=== PATIENT | female | born 1960 | race Caucasian/White ===

== ENCOUNTER 2023-04-25 16:37 | Outpatient (OUT) | payer OTHER, SELFPAY ==
--- NOTE | 2023-04-25 17:10 | XR_ITS ---
[facility] [place] [id number] Patient Name: ALF CANALES MRN: [id number] date: 1960 Sex: F Assigned Patient Location: [facility] Current Patient Location: [facility] Accession/Order Number: [id number] Exam Date: 04/25/2023 17:00 Report Date: 04/25/2023 17:58 At the request of: ANTONIO NUNN Procedure: XR hand LT min 3V EXAM: XR hand LT min 3V HISTORY: Pain and swelling in 2nd digit, M79.645 COMPARISON: None. TECHNIQUE: 3 views of the left hand were obtained. FINDINGS: There is no evidence of an acute fracture or dislocation. There is mild narrowing at the first carpometacarpal joint. The joint spaces otherwise appear intact. No abnormal soft tissue calcifications are identified in the index finger. XR/XR hand LT min 3V IMPRESSION: No acute fracture or dislocation. No significant degenerative changes are present in the index finger. Electronically authenticated by: ROSA BRONSON Date: 04/25/2023 17:58
== END 2023-04-25 16:38 | disposition home or self-care (01) ==
LOC: RAD 16:43
PROVIDERS: PCP Family Medicine; Visit Provider Nurse Practitioner Family
DX: M79.645 Pain in left finger(s) (principal)
CPT/HCPCS: 73130

== ENCOUNTER 2023-05-20 07:33 | Outpatient (OUT) | payer OTHER, SELFPAY ==
--- NOTE | 2023-05-20 07:34 | VEIN_ITS ---
Patient: ALF CANALES Exam Date: 05/20/2023 : 1960 Gender:F Ordering : DR JOJO SCHMITZ M.D. Admission #: [id number] Family : Order #: [id number] CLICK HERE TO VIEW EXAM RADIOLOGY REPORT PROCEDURE: [facility] COMPREHENSIVE VEIN CENTER - OFFICE VISIT INITIAL COMPARISON: None. PROGRESS NOTES: [age] year old female who presents with a 8 year history of bulging dilated veins, aching, burning sensation, heaviness, itching, and dull pain of legs (7/10 on pain scale). The patient's soft leg symptoms are worse than the right. There has been a progression of symptoms. 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 The patient describes an improvement with rest, elevation, exercise, support stockings, and [id number] medication. The patient denies any signs and symptoms to suggest arterial ischemia. The patient describes a family history of varicose veins on paternal side. The patient has drinking and smoking history of : no alcohol or tobacco use. Patient has a past medical history significant for hypothyroidism. The patient denies a history of deep venous thrombus or pulmonary embolus. See separate history and physical for medication list. No prior treatment for varicose or spider veins. Current , long-term use of compression stockings. After review of nurse notes, history and physical exam I discussed at length the pathophysiology of venous hypertension and possible treatments, therapies and strategies available. We discussed at length the importance of elevating the lower extremities above the level of the heart, increased physical activity and compression stocking use. Ultrasound venous reflux study performed today was discussed at length with the patient. The report demonstrates mildly dilated left great saphenous vein with multiple areas of abnormal reflux. Multiple vessels bilaterally border on, fall just below criteria for treatment. Prominent, abnormally dilated and incompetent branch saphenous varicosity within distal left thigh. Incompetent financial writer veins within right calf.. PHYSICAL EXAM: The right leg demonstrates a few varicosities, several prominent reticular veins and spider veins, no ulceration, mild edema at time of being seen in the servicer travel trailers, no skin discoloration. The left leg demonstrates a few varicosities, several prominent reticular veins and spider veins, no ulceration, mild edema at time of vein seen in the servicer travel trailers, no skin discoloration. Both thighs, legs and feet were symmetrically warm to the touch. Good posterior tibial and dorsalis pedis pulses were present bilaterally. VEIN/[facility] Facility EST Comprehensive IMPRESSION: 1. Mild venous insufficiency, left greater than right, but patient is very symptomatic with significant exacerbation by end of day when patient is working, for which she is seeking relief. 2. A few lower extremity varicose veins 3. Mild bilateral lower extremity subcutaneous edema at time of valuation; patient describes this significantly increasing by end of day. 4. No flow significant arterial disease 5. CEAP: C3, EC, , IA PLAN: 1. Continued use of compression stockings 2. Elevated legs and increased physical activity symptomatic relief 3. Endovenous laser ablation of proximal left great saphenous vein. 4. Microfoam chemical ablation of incompetent branch saphenous varicosities. 5. Sclerotherapy of prominent reticular veins and spider veins. Nurse notes, history and physical were reviewed and confirmed, see attached forms. The nurse was present throughout the physical exam and consultation Dictated by: Bruce Saul M.D. on 05/20/2023 at 09:05 Approved by: Bruce Saul M.D. on 05/20/2023 at 09:16
--- NOTE | 2023-05-20 07:34 | VEIN_ITS ---
Patient: ALF CANALES Exam Date: 05/20/2023 : 1960 Gender:F Ordering : ANTONIO SIMPSONUCH Admission #: [id number] Family : DR JOJO SCHMITZ M.D. Order #: [id number] CLICK HERE TO VIEW EXAM RADIOLOGY REPORT PROCEDURE: VC EXT VENOUS REFLUX BRIEN LMTD COMPARISON: None. INDICATIONS: I83.90 Recurrent varicose veins of bilateral leg veins TECHNIQUE: Duplex imaging of the lower extremity to assess the deep and superficial venous system for the presence of deep or superficial venous incompetence and to document the location and severity of disease. The study includes evaluation of the great saphenous vein (GSV), anterior accessory saphenous vein (AASV) and small saphenous vein (SSV). Patient scanned in reverse Trendelenburg and standing. FINDINGS: RIGHT LOWER EXTREMITY: Saphenofemoral Junction Reflux: Yes 5.9mm 0.3 sec GSV: Diam (mm) Reflux/ Time (sec) Proximal Thigh 5.5 Yes 0.8 Mid Thigh 3.5 Yes 0.4 Distal Thigh 2.6 Yes 0.9 Prox Calf 1.8 Yes 0.2 Mid Calf 1.9 No Saphenopopliteal Junction Reflux: 4.4mm Yes 0.5 SSV: Proximal Calf 3.6 Yes 0.3 Mid Calf 2.4 Yes 0.3 AASV: Not present Proximal Thigh Mid Thigh Distal Thigh Thrombi: No acute or chronic thrombus. Compressibility: Normal. Flow: Mild deep venous reflux. Preforator: Two perforators mid medial lower leg 2.3 mm and 1.6mm with 1.7s reflux. Tech Note: Varicose vein proximal medial lower leg measures 1.1 mm with 0.3s reflux. LEFT LOWER EXTREMITY: Saphenofemoral Junction Reflux: Yes 10.7 mm 1.0 sec GSV: Diam (mm) Reflux/Time (sec) Proximal Thigh 5.7 Yes 0.9 Mid Thigh 3.6 Yes 1.8 Distal Thigh 4.1 Yes 0.6 Prox Calf 2.5 Yes 0.2 Mid Calf 2.0 Yes 2.8 Saphenopopliteal Junction Relux: 2.5 mm Yes 0.2 SSV: Proximal Calf 2.2 Yes 0.4 Mid Calf 2.0 Yes 3.3 AASV: Proximal Thigh 3.4 Yes 0.3 Mid Thigh 3.8 Yes 0.9 Distal Thigh Thrombi: No acute or chronic thrombus. Compressibility: Normal. Flow: Mild deep venous reflux. Flame Hardener: Dist medial lower leg 3.2 mm with 0.7s reflux. Tech Note: Thigh extention of left SSV. Incompetent varicose vein lateral knee that arises from AASV measures 4.2 mm with 1.1s reflux. Varicose vein mid medial lower leg without reflux. CONCLUSION: 1. Mildly dilated left great saphenous vein with moderate reflux. 2. Incompetent instrument lens generator veins within distal right lower extremity. 3. Incompetent and dilated branch saphenous varicosity within left thigh. Dictated by: Bruce Saul M.D. on 05/20/2023 at 08:35 Approved by: Bruce Saul M.D. on 05/20/2023 at 09:05
== END 2023-05-20 07:34 | disposition home or self-care (01) ==
PROVIDERS: PCP Family Medicine; Visit Provider Radiology Diagnostic Radiology
DX: I83.813 Varicose veins of bilateral lower extremities with pain (principal)
CPT/HCPCS: 93970; G0463

== ENCOUNTER 2023-08-01 08:07 | Outpatient (OUT) | payer OTHER, SELFPAY ==
--- NOTE | 2023-08-01 08:08 | VEIN_ITS ---
[address] [address] Patient Name: ALF CANALES MRN: [id number] date: 1960 Sex: F Assigned Patient Location: Current Patient Location: Accession/Order Number: [id number] Exam Date: 08/01/2023 08:25 Report Date: 08/01/2023 10:12 At the request of: JOJO SCHMITZ Procedure: VC Endovenous Ablation 1VeinLT EXAMINATION: VC Endovenous Ablation 1VeinLT HISTORY: I83.813 Painful varicose veins of bilat lower extremities COMPARISON: No relevant comparison available. TECHNIQUE: The risks and benefits of the procedure had been previously discussed, and were rediscussed at length. Informed written consent was obtained. Ivory Ornelas and Arely Toth assisted. Time out procedure was performed. The left lower extremity was prepared and draped in the usual sterile fashion to allow knee flexion in the sterile field. Duplex ultrasound probe was draped in a sterile cover, sterile transmission gel was used. Venous mapping was performed with the areas of dilation and large tributaries marked. The total length was 28 cm from the entry at the knee to 3 cm below the saphenofemoral junction. The diameter of the greater saphenous vein ranged from 4-6 mm. A 30 gauge needle and 1% buffered lidocaine was used to anesthetize the entry site. A 4 mm incision was made with a scalpel and the saphenous vein was entered percutaneously under direct ultrasound guidance with a micropuncture set, a single stick was successful in gaining access. A micro-guide wire was inserted and the needle removed. A micro-set including a dilator was inserted over the microwire and the needle and dilator were removed. A 0.018 guide wire was inserted through the micro-set and threaded through the saphenous vein to the saphenofemoral junction. The dilator was removed and an introducer sheath was inserted over the wire until the end of the sheath entered the saphenofemoral junction. The dilator and wire were removed and the 600 micron fiber was introduced and placed and positioned so that it extended beyond the sheath and was 3 cm peripheral to the saphenofemoral femoral junction. Final position of the fiber was determined by ultrasound guidance and duplex imaging. Tumescent anesthetic was delivered by ultrasound guidance. 150 cc of fluid was delivered along the entire course of the saphenous vein. The solution consisted of 1000 cc of normal saline with 40 mL of 1% lidocaine and 20 mL of sodium bicarbonate. A final positioning check was made. The energy source was turned on by means of the foot pedal and the fiber and sheath were withdrawn. The total number of Joules delivered was 1690. The laser was active for 211 seconds under continuous pulse, average laser use of 8 J. Laser start time 847 AM 08/01/2023. Laser stop time 850AM 08/01/2023. A duplex ultrasound revealed compressibility and flow at the saphenofemoral junction immediately after the procedure. Hemostasis at the access site was achieved. The skin incision of the saphenous vein was closed with a 4 x 4. A compression stocking was applied. Postop instructions were given. A follow up appointment was recommended and scheduled. The patient tolerated the procedure well and was discharged in good condition . VEIN/VC Endovenous Ablation 1VeinLT IMPRESSION: Technically successful right great saphenous vein endovenous laser ablation Electronically authenticated by: JOJO SCHMITZ Date: 08/01/2023 10:12
[2023-08-01] MEDS: 0.9 % SODIUM CHLORIDE 500 ML, LIDOCAINE HCL 20 ML, SODIUM BICARBONATE 10 MEQ INJ (08:39)
[2023-08-01] MEDS: LIDOCAINE HCL 1% 100 MG/10 ML MDV INJ (08:39)
== END 2023-08-01 08:08 | disposition home or self-care (01) ==
LOC: VC 08:07
PROVIDERS: PCP Radiology Diagnostic Radiology; Visit Provider Radiology Diagnostic Radiology
DX: I83.813 Varicose veins of bilateral lower extremities with pain (principal)
CPT/HCPCS: 36478

== ENCOUNTER 2023-08-08 08:04 | Outpatient (OUT) | payer OTHER, SELFPAY ==
--- NOTE | 2023-08-08 08:07 | VEIN_ITS ---
Patient Name: ALF CANALES MR#: [id number] : 1960 Exam Date: 08/08/2023 Ordering Doctor: DR JOJO SCHMITZ M.D. RADIOLOGY REPORT PROCEDURE: VC EXT VENOUS LT LIMITED COMPARISON: None. INDICATIONS: Phlebitis of superficial vein of lt lower extremity I80.02 TECHNIQUE: Lower extremity carpio scale and Duplex Doppler evaluation of the deep venous system from the inguinal ligament through the calf veins. FINDINGS: REGION: Left lower extremity. THROMBI: Negative for DVT. Heat induced thrombus visualized 1.2cm from the SFJ. The heat induced thrombus extends from groin to distal thigh. COMPRESSIBILITY: Non-compressible segments corresponding to thrombus FLOW: Areas of no flow. OTHER: CONCLUSION: 1. Successful post ablation occlusion of left great saphenous vein. Dictated by: Bruce Saul M.D. on 08/08/2023 at 09:14 Approved by: Bruce Saul M.D. on 08/08/2023 at 09:16
--- NOTE | 2023-08-08 08:08 | VEIN_ITS ---
Patient Name: ALF CANALES MR#: [id number] : 1960 Exam Date: 08/08/2023 Ordering Doctor: DR JOJO SCHMITZ M.D. RADIOLOGY REPORT PROCEDURE: [facility]ILITY EST LMTD VEIN CENTER - OFFICE VISIT FOLLOW UP COMPARISON: None. PROGRESS NOTES: The patient reports improvement in leg symptoms. There has been interval reduction in varicosities. The patient has followed our recommendations to walk 20-30 minutes once or twice per day since the procedure. Physical exam demonstrates decrease in varicosities of the leg. Persistent varicosities are identified along the legs bilaterally. Review of the ultrasound performed the same day demonstrates occlusive thrombus extending throughout the treated vein(s), see separate report, consistent with a successful ablation. No thrombus extending into or beyond the saphenofemoral junction. The patient expressed a desire to proceed with treatment of incompetent varicose veins and spider veins. The patient was informed that treatment was a process and would require several procedures/sessions. VEIN/ Facility EST TD IMPRESSION: 1. Successful ablation of the left great saphenous vein(s). 2. Persistent superficial varicose veins and spider veins and lower extremity symptoms. PLAN: Microfoam chemical ablation of left leg branch saphenous varicosities. Sclerotherapy bilaterally. Nurse notes, history and physical were reviewed and confirmed, see attached forms. The nurse was present throughout the physical exam and consultation Dictated by: Bruce Saul M.D. on 08/08/2023 at 09:16 Approved by: Bruce Saul M.D. on 08/08/2023 at 09:18
== END 2023-08-08 08:05 | disposition home or self-care (01) ==
LOC: VC 08:05
PROVIDERS: PCP Radiology Diagnostic Radiology; Visit Provider Radiology Diagnostic Radiology
DX: I80.02 Phlebitis and thrombophlebitis of superficial vessels of left lower extremity (principal)
CPT/HCPCS: 93971; G0463

== ENCOUNTER 2023-08-13 07:33 | Outpatient (OUT) | payer OTHER, SELFPAY ==
--- NOTE | 2023-08-13 07:34 | VEIN_ITS ---
[address] [address] Patient Name: ALF CANALES MRN: [id number] date: 1960 Sex: F Assigned Patient Location: Current Patient Location: Accession/Order Number: [id number] Exam Date: 08/13/2023 07:30 Report Date: 08/13/2023 10:04 At the request of: JOJO SCHMITZ Procedure: VC INJ Foam Sclerosant WUS HAZMAT TECHNICIAN PROCEDURE: VC INJ Foam Sclerosant WUS HAZMAT TECHNICIAN HISTORY: Pain due to varicose veins of bilateral legs I83.813 Pre-operative Diagnosis: CEAP class C3 venous insufficiency with pain, tenderness, edema and incompetent branch saphenous vein(s), chronic venous insufficiency left leg secondary to venous incompetence Post-operative Diagnosis: CEAP class C3 venous insufficiency with pain, tenderness, edema and incompetent branch saphenous vein(s), chronic venous insufficiency left leg secondary to venous incompetence Procedure Performed: 1. Ultrasound-guided microfoam chemical ablation with Varithenaregistered 2. Intraoperative ultrasound guidance Physician: Bruce Saul M.D. Anesthesia: None Indications for Procedure: 63 year old female. Symptoms including lower extremity pain, swelling, and dilated bulging veins for many years despite conservative medical therapy including medical compression stockings, exercise and analgesics. Prior procedures include endovenous laser ablation. Multiple incompetent varicosities of the left leg. Duplex scan showed reflux and enlarged diameters up to 3 mm. The patient underwent informed consent including management options where the complications of infection, bleeding, pain, and skin injury were discussed. Particular attention was spent discussing thrombus extension and deep vein thrombosis as well as the possibility of pulmonary embolus and treatment with oral or injectable blood thinners. Procedure: The patient walked to the procedure room. All applicable staff donned appropriate apparel. A procedure timeout was performed to confirm correct patient, correct extremity, correct procedure, and correct room set-up including presence of all applicable supplies, devices, and drugs. A duplex ultrasound, performed by myself confirmed the location and incompetence of branch saphenous varicosities and their course was marked on the skin together with the dilated tributaries. The extent of treatment of the vein and the associated varicosities was determined through ultrasound mapping. The skin was prepped and then punctured with a butterfly needle and advanced under ultrasound guidance. The Varithenaregistered canister was activated and the canister was primed and purged as required in the instructions for use. Varithenaregistered was drawn into a sterile syringe. Varithenaregistered was slowly administered at 0.5-1.0 cc/second with close observation by ultrasound of its course in the vessels. Total volume utilized was: 10 mL (6 mL into a 3 mm incompetent varicosity lateral to the left knee; 4 mL into an incompetent 3 mm varicosity of the distal medial left calf). Following administration of Varithenaregistered the leg was elevated and the patient was asked to repeatedly dorsiflex the ankle to limit flow of Varithenaregistered into perforating veins. Once appropriate spasm had been confirmed in the treated veins, the vascular catheter was removed from the leg and light pressure was applied over the puncture site for hemostasis. The common femoral and deep superficial veins were then evaluated for flow and compressibility prior to dressing placement. The lower extremity was kept elevated at 45 degrees above the horizontal and cording material was applied over the saphenous segments and tributaries to allow for eccentric compression over the target vessels including the targeted saphenous vein(s). A multilayer dressing was applied consisting of foam pads, coban and thigh-high 20-30 mm Hg compression elastic support hose were placed on the patient. The leg was lowered only after compression had been applied and the patient was immediately ambulatory. The patient ambulated 10 minutes under supervision and was without apparent concerns at time of release. Post-care instructions include advising patient to keep post-treatment bandages in place and dry for 48 hours, avoid extended periods of inactivity, avoid heavy exercise for one week, wear compression stockings on the treated leg continuously for two weeks, to walk daily for 10 minutes over the next month. The patient was instructed to take an anti-inflammatory medicine as needed and to follow up for color duplex scan of the Saphenous veins, the treated branch saphenous varicosities, the adjacent deep veins, and additional treatment within 7 days. PERSONNEL: Manny Arellano RN Electronically authenticated by: BRUCE SAUL Date: 08/13/2023 10:04
== END 2023-08-13 07:34 | disposition home or self-care (01) ==
LOC: VC 07:33
PROVIDERS: PCP Radiology Diagnostic Radiology; Visit Provider Radiology Diagnostic Radiology
DX: I83.813 Varicose veins of bilateral lower extremities with pain (principal)
CPT/HCPCS: 36466

== ENCOUNTER 2023-08-20 08:03 | Outpatient (OUT) | payer OTHER, SELFPAY ==
--- NOTE | 2023-08-20 08:04 | VEIN_ITS ---
Patient Name: ALF CANALES MR#: [id number] : 1960 Exam Date: 08/20/2023 Ordering Doctor: DR JOJO SCHMITZ M.D. RADIOLOGY REPORT PROCEDURE: VC EXT VENOUS LT LIMITED COMPARISON: VC EXT VENOUS LT LIMITED, 08/08/2023. INDICATIONS: Phlebitis of superficial vein of lt lower extremity I80.02 TECHNIQUE: Lower extremity carpio scale and Duplex Doppler evaluation of the deep venous system from the inguinal ligament through the calf veins. FINDINGS: REGION: Left lower extremity. THROMBI: Negative for DVT. Varithena induced thrombus visualized dist/med and lateral knee. COMPRESSIBILITY: Non-compressible segments corresponding to thrombus FLOW: Areas of no flow corresponding to thrombus OTHER: No patent varicose veins remain. CONCLUSION: 1. Successful post ablation occlusion of left leg treated branch saphenous varicosities. Dictated by: Bruce Saul M.D. on 08/20/2023 at 11:24 Approved by: Bruce Saul M.D. on 08/20/2023 at 11:25
--- NOTE | 2023-08-20 08:05 | VEIN_ITS ---
Patient Name: ALF CANALES MR#: [id number] : 1960 Exam Date: 08/20/2023 Ordering Doctor: DR JOJO SCHMITZ M.D. RADIOLOGY REPORT PROCEDURE: [facility] EST L[facility] C[facility] - OFFICE VISIT FOLLOW [facility] PROGRESS NOTES: The patient reports improvement in leg symptoms. There has been interval reduction in varicosities. The patient has followed our recommendations to walk 20-30 minutes once or twice per day since the procedure. Physical exam demonstrates decrease in varicosities of the leg. Persistent spider veins are identified along the legs bilaterally. Review of the ultrasound performed the same day demonstrates occlusive thrombus extending throughout the treated vein(s), see separate report, consistent with a successful ablation. No thrombus extending into or beyond the saphenofemoral junction. The patient expressed a desire to proceed with treatment of spider veins and reticular veins. The patient was informed that treatment was a process and would require approximately 2 procedures/sessions. [facility]: 1. Successful ablation of the left leg treated branch saphenous vein(s). 2. Persistent spider veins/reticular veins and mild lower extremity symptoms. PLAN: Sclerotherapy of lower extremity spider veins and reticular veins. Nurse notes, history and physical were reviewed and confirmed, see attached forms. The nurse was present throughout the physical exam and consultation Dictated by: Bruce Saul M.D. on 08/20/2023 at 12:52 Approved by: Bruce Saul M.D. on 08/20/2023 at 12:53
== END 2023-08-20 08:04 | disposition home or self-care (01) ==
LOC: VC 08:03
PROVIDERS: PCP Radiology Diagnostic Radiology; Visit Provider Radiology Diagnostic Radiology
DX: I80.02 Phlebitis and thrombophlebitis of superficial vessels of left lower extremity (principal)
CPT/HCPCS: 93971; G0463

== ENCOUNTER 2023-08-29 08:00 | Outpatient (OUT) | payer OTHER, SELFPAY ==
--- NOTE | 2023-08-29 08:02 | VEIN_ITS ---
[address] [address] Patient Name: ALF CANALES MRN: [id number] date: 1960 Sex: F Assigned Patient Location: Current Patient Location: Accession/Order Number: [id number] Exam Date: 08/29/2023 08:02 Report Date: 08/29/2023 08:54 At the request of: JOJO SCHMITZ Procedure: VC INJ Sclerosing SOLMULT Vein EXAMINATION: VC INJ Sclerosing SOLMULT Vein HISTORY: Pain due to varicose veins of bilateral legs I83.813 The risks and benefits of the procedure were explained at length to the patient and informed written consent was obtained. The procedure was performed under sterile technique. The patient's leg was wrapped with Coban and postprocedural verbal and written instructions provided. Manny Arellano RN was present and assisted. SCLEROSANT: 2mL 0.5% Polidocanol. VEIN(S) INJECTED: 24 veins in the left leg. VISUALIZATION: Ultrasound was not used to visualize the sclerosant. ANESTHESIA: Supercooled air. COMPLICATIONS: None. Electronically authenticated by: IRVIN SIU Date: 08/29/2023 08:54
== END 2023-08-29 08:01 | disposition home or self-care (01) ==
LOC: VC 08:00
PROVIDERS: PCP Family Medicine; Visit Provider Radiology Diagnostic Radiology
DX: I83.813 Varicose veins of bilateral lower extremities with pain (principal)
CPT/HCPCS: 36471

== ENCOUNTER 2023-09-05 10:51 | Outpatient (OUT) | payer OTHER, SELFPAY ==
--- NOTE | 2023-09-05 10:55 | VEIN_ITS ---
[address] [address] Patient Name: ALF CANALES MRN: [id number] date: 1960 Sex: F Assigned Patient Location: Current Patient Location: [facility] Accession/Order Number: [id number] Exam Date: 09/05/2023 10:55 Report Date: 09/05/2023 12:46 At the request of: JOJO SCHMITZ Procedure: VC INJ Sclerosing SOLMULT Vein EXAMINATION: VC INJ Sclerosing SOLMULT Vein HISTORY: Pain due to varicose veins of bilateral legs I83.813 COMPARISON: No relevant comparison available. TECHNIQUE: The risks and benefits of the procedure were explained at length to the patient and informed written consent was obtained. Manny Arellano was present and assisted. The procedure was performed under sterile technique. The patient's leg was wrapped with Coban and postprocedural verbal and written instructions provided. SCLEROSANT: 4 cc, 0.5% polidocanol VEIN(S) INJECTED: 24 veins in the right leg VISUALIZATION: Ultrasound was not used to visualize the sclerosant ANESTHESIA: Supercooled air COMPLICATIONS: None VEIN/VC INJ Sclerosing SOLMULT Vein IMPRESSION: Technically successful sclerotherapy as described Electronically authenticated by: JOJO SCHMITZ Date: 09/05/2023 12:46
== END 2023-09-05 10:52 | disposition home or self-care (01) ==
LOC: VC 10:51
PROVIDERS: PCP Radiology Diagnostic Radiology; Visit Provider Radiology Diagnostic Radiology
DX: I83.813 Varicose veins of bilateral lower extremities with pain (principal)
CPT/HCPCS: 36471

== ENCOUNTER 2023-09-10 14:03 | Outpatient (OUT) | payer OTHER, SELFPAY ==
--- NOTE | 2023-09-10 14:04 | VEIN_ITS ---
[address] [address] Patient Name: ALF CANALES MRN: [id number] date: 1960 Sex: F Assigned Patient Location: Current Patient Location: [facility] Accession/Order Number: [id number] Exam Date: 09/10/2023 14:05 Report Date: 09/10/2023 14:43 At the request of: JOJO SCHMITZ Procedure: VC INJ Sclerosing SOLMULT Vein EXAMINATION: VC INJ Sclerosing SOLMULT Vein HISTORY: Pain due to varicose veins of bilateral legs I83.813 COMPARISON: No relevant comparison available. TECHNIQUE: The risks and benefits of the procedure were explained at length to the patient and informed written consent was obtained. Manny Arellano was present and assisted. The procedure was performed under sterile technique. The patient's leg was wrapped with Coban and postprocedural verbal and written instructions provided. SCLEROSANT: 4 cc, 0.5% polidocanol VEIN(S) INJECTED: 22 veins in the left leg VISUALIZATION: Ultrasound was not used to visualize the sclerosant ANESTHESIA: Supercooled air COMPLICATIONS: None VEIN/VC INJ Sclerosing SOLMULT Vein IMPRESSION: Technically successful sclerotherapy as described Electronically authenticated by: JOJO SCHMITZ Date: 09/10/2023 14:43
== END 2023-09-10 14:04 | disposition home or self-care (01) ==
LOC: VC 14:03
PROVIDERS: PCP Radiology Diagnostic Radiology; Visit Provider Radiology Diagnostic Radiology
DX: I83.813 Varicose veins of bilateral lower extremities with pain (principal)
CPT/HCPCS: 36471

== ENCOUNTER 2023-09-12 16:02 | Outpatient (OUT) | payer OTHER, SELFPAY ==
--- NOTE | 2023-09-12 16:04 | MM_ITS ---
Patient Name: ALF CANALES MR#: [id number] : 1960 Exam Date: 09/12/2023 Ordering Doctor: DR ALEJANDRO LOWE RADIOLOGY REPORT PROCEDURE: MM TOMOSYNTHESIS SCREENING BI COMPARISON: MG MAMM SCREEN 3D BRIEN CAD, 08/10/2021. MG MAMM SCREEN 3D BRIEN CAD, 09/10/2022. INDICATIONS: Screening Calculator Name NCI Breast Cancer Risk Assessment Tool 5 Year Breast Cancer Risk 2.00% Lifetime Breast Cancer Risk 9.00% Personal Breast Cancer No Personal Ovarian Cancer No Treatments None Family Cancers None LOCATION: [facility] BREAST COMPOSITION: Heterogeneously dense,which may obscure small masses. FINDINGS: DIAGNOSTIC CATEGORY 2--BENIGN FINDING. NO CHANGE FROM COMPARISON. Scattered benign-appearing nodules are present. Scattered benign-appearing calcifications are present. RIGHT BREAST: No significant suspicious finding. LEFT BREAST: No significant suspicious finding. RECOMMENDATIONS: ROUTINE MAMMOGRAM AND CLINICAL EVALUATION IN 12 MONTHS. PLEASE NOTE: A NORMAL MAMMOGRAM DOES NOT EXCLUDE THE POSSIBILITY OF BREAST CANCER. A CLINICALLY SUSPICIOUS PALPABLE LUMP SHOULD BE BIOPSIED. Dictated by: River Lees MD on 09/13/2023 at 08:39 Approved by: River Lees MD on 09/13/2023 at 08:41
== END 2023-09-12 16:03 | disposition home or self-care (01) ==
LOC: MAMMO 16:02
PROVIDERS: PCP Radiology Diagnostic Radiology; Visit Provider Family Medicine
DX: Z12.31 Encounter for screening mammogram for malignant neoplasm of breast (principal)
CPT/HCPCS: 77063; 77067

== ENCOUNTER 2025-01-11 08:18 | Outpatient (OUT) | payer OTHER, SELFPAY ==
--- NOTE | 2025-01-11 08:22 | MM_ITS ---
Patient Name: ALF CANALES MR#: [id number] : 1960 Exam Date: 01/11/2025 Ordering Doctor: DR ALEJANDRO LOWE RADIOLOGY REPORT PROCEDURE: MM TOMOSYNTHESIS SCREENING BI COMPARISON: MM TOMOSYNTHESIS SCREENING BI, 09/12/2023. MG MAMM SCREEN 3D BRIEN CAD, 09/10/2022. MG MAMM SCREEN 3D BRIEN CAD, 08/10/2021. MG MAMM BRIEN DIAG W CAD DIG, 08/03/2008. INDICATIONS: Screening Calculator Name NCI Breast Cancer Risk Assessment Tool 5 Year Breast Cancer Risk 2.10% Lifetime Breast Cancer Risk 8.70% Personal Breast Cancer No Personal Ovarian Cancer No Treatments None Family Cancers None LOCATION: [facility] BREAST COMPOSITION: There are scattered areas of fibroglandular density. FINDINGS: DIAGNOSTIC CATEGORY 1--NEGATIVE. RIGHT BREAST: No significant suspicious finding. LEFT BREAST: No significant suspicious finding. RECOMMENDATIONS: ROUTINE MAMMOGRAM AND CLINICAL EVALUATION IN 12 MONTHS. PLEASE NOTE: A NORMAL MAMMOGRAM DOES NOT EXCLUDE THE POSSIBILITY OF BREAST CANCER. A CLINICALLY SUSPICIOUS PALPABLE LUMP SHOULD BE BIOPSIED. Dictated by: Cameron Montes DO on 01/11/2025 at 15:59 Approved by: Cameron Montes DO on 01/11/2025 at 16:00
--- OUTSIDE RECORDS SUMMARY | 2025-01-11 08:38 | XMS_ITS | CCD ---
Author Organization [facility] CliniSyal Care Team Providers Care Tailings Worker Name Role Phone FURLONG, DR ABELINO Boyle Primary Care Unavailable FURLONG, DR ABELINO Boyle Admitting Unavailable FURLONG, DR ABELINO Boyle Attending Unavailable FURLONG, DR ABELINO Boyle Consulting Unavailable PATTERSON, DR JOJO Ferreira Consulting Unavailable FURLONG, DR ABELINO Byole Primary Care Unavailable FURLONG, DR ABELINO Boyle Admitting Unavailable FURLONG, DR ABELINO Boyle Attending Unavailable FURLONG, DR ABELINO Boyle Consulting Unavailable Zieber, DR Barrera Consulting Unavailable CECILIA MONDRAGON Referring Unavailable EDOUARD, ANTONIO Gomez Primary Care Unavailable EDOUARD, ANTONIO Gomez Attending Unavailable FURLONGABELINO Referring Unavailable FURLONG, ABELINO Boyle Primary Care Unavailable EDOUARD, ANTONIO Gomez Attending Unavailable FURLONG, ABELINO Boyle Referring Unavailable EDOUARD, ANTONIO Patricia Primary Care Unavailable CECILIA MONDRAGON Attending Unavailable FURLONG, ABELINO Boyle Referring Unavailable EDOUARD, ANTONIO Patricia Primary Care Unavailable EDOUARD, ANTONIO Gomez Attending Unavailable EDOUARD, ANTONIO Gomez Referring Unavailable EDOUARD, ANTONIO Patricia Primary Care Unavailable Edouard CERTIFICATION ENGINEER-Antonio GODOY Primary Care Provider Furng Abelino JONES Primary Care Provider [phone] Medications Current Medications Medication Drug Class(es) Dates Sig (Normalized) Sig (Original) [id number] 200 actuat albuterol 0.09 mg/actuat metered dose inhaler (14 sources) beta2-Adrenergic Agonist Start: 08-09-2022 take 2 puff(s) by inhalation every six hours as needed for wheezing albuterol (PROVENTIL HFA;VENTOLIN HFA) 90 mcg/actuation inhaler Indications: Mild intermittent asthma without complication Inhale 2 puffs every 6 (six) hours as needed for wheezing. 18 g 08/09/2022 Active alendronic acid 70 mg oral tablet (16 sources) Bisphosphonate Start: 12-08-2022 End: 02-05-2024 take 1 tablet by mouth every week alendronate (FOSAMAX) 70 mg tablet Indications: Age-related osteoporosis without current pathological fracture TAKE 1 TABLET BY MOUTH EVERY WEEK 12 tablet 3 02/05/2024 Active baclofen 10 mg oral tablet (11 sources) gamma-Aminobutyric Acid-ergic Agonist Start: 05-03-2024 take 1 tablet by mouth twice daily as needed for muscle spasms baclofen (LIORESAL) 10 mg tablet take 1 tablet by mouth twice daily as needed for muscle spasms 28 tablet 1 05/03/2024 Active Start: 02-05-2024 End: 05-03-2024 take 1 tablet by mouth twice daily as needed for muscle spasms baclofen (LIORESAL) 10 mg tablet take 1 tablet by mouth twice daily as needed for muscle spasms 28 tablet 1 05/03/2024 Active benzonatate 200 mg oral capsule (6 sources) Non-narcotic Antitussive Start: 09-16-2022 End: 02-20-2024 take 1 capsule by mouth three times daily as needed for cough benzonatate (TESSALON PERLES) 200 mg capsule TAKE 1 CAPSULE BY MOUTH THREE TIMES DAILY NEEDED FOR COUGH 30 capsule 09/16/2022 02/20/2024 Discontinued (Therapy completed) calcium carbonate 1250 mg / cholecalciferol 200 unt oral tablet (14 sources) Vitamin D Start: 11-05-2022 take 1 tablet by mouth in the morning, then take 1 tablet by mouth once at mealtime calcium carbonate-vitamin D3 (OYSTER SHELL CALCIUM-VIT D3) 500 mg(1,250mg) -200 units per tablet Indications: Age-related osteoporosis without current pathological fracture Take 1 tablet by mouth in the morning and 1 tablet in the evening. Take with meals. 90 tablet 11/05/2022 Active cholecalciferol 0.125 mg oral tablet (14 sources) Vitamin D Start: 11-05-2022 take 1 tablet by mouth in the morning cholecalciferol, vitamin D3, (VITAMIN D3) 5,000 units tablet Indications: Age-related osteoporosis without current pathological fracture Take 1 tablet (5,000 Units total) by mouth in the morning. 90 tablet 11/05/2022 Active diclofenac sodium 0.01 mg/mg topical gel (14 sources) Nonsteroidal Anti-inflammatory Drug Start: 04-25-2023 diclofenac sodium (VOLTAREN) 1 % gel Apply 2 g topically in the morning and 2 g at noon and 2 g in the evening and 2 g before bedtime. 20 g 04/25/2023 Active fluticasone propionate 0.05 mg/actuat metered dose nasal spray (12 sources) Corticosteroid Start: 12-04-2023 take 1 spray(s) nasal route in the morning fluticasone propionate (FLONASE) 50 mcg/actuation nasal spray Administer 1 spray into each nostril in the morning. 9.9 mL 1 12/04/2023 Active ibuprofen 800 mg oral tablet (14 sources) Nonsteroidal Anti-inflammatory Drug Start: 09-25-2022 take 1 tablet by mouth every six hours as needed for pain ibuprofen (MOTRIN) 800 mg tablet Indications: Strain of right shoulder, initial encounter Take 1 tablet (800 mg total) by mouth every 6 (six) hours as needed for pain. 30 tablet 1 09/25/2022 Active levothyroxine sodium 0.05 mg oral tablet (20 sources) l-Thyroxine Start: 12-09-2024 take 1 tablet by mouth in the morning levothyroxine (SYNTHROID, LEVOTHROID) 50 MCG tablet Indications: Acquired hypothyroidism Take 1 tablet (50 mcg total) by mouth in the morning. 90 tablet 1 12/09/2024 Active Start: 10-14-2024 End: 12-07-2024 take 1 tablet by mouth once daily in the morning levothyroxine (SYNTHROID, LEVOTHROID) 50 MCG tablet Indications: Acquired hypothyroidism TAKE 1 TABLET BY MOUTH EVERY MORNING 90 tablet 10/14/2024 12/07/2024 Discontinued (Reorder) Start: 03-02-2023 End: 10-14-2024 take 1 tablet by mouth in the morning levothyroxine (SYNTHROID, LEVOTHROID) 50 MCG tablet Indications: Acquired hypothyroidism take 1 tablet by mouth in the morning 90 tablet 05/03/2024 Active multivitamin capsule (14 sources) Start: 11-05-2022 take 1 capsule by mouth in the morning multivitamin capsule Indications: Encounter for preventative adult health care exam with abnormal findings Take 1 capsule by mouth in the morning. 90 capsule 11/05/2022 Active Start: 11-05-2022 take 1 capsule by mo uth in the morning multivitamin capsule Indications: Encounter for preventative adult health care exam with abnormal findings Take 1 capsule by mouth in the morning. 90 capsule 0 11/05/2022 Active Problems Active Problems Problem Classification Problem Date Documented Da te Episodic/Chronic Osteoporosis (17 sources) Age-related osteoporosis without current pathological fracture; Translations: [Osteoporosis] Onset: 08-27-2022 08-27-2022 Chronic Other nutritional; endocrine; and metabolic disorders (1 source) Body mass index (BMI) 26.0-26.9, adult; Translations: [Body mass index (BMI) 26.0-26.9, adult] Onset: 02-20-2024 Episodic Other screening for suspected conditions (not mental disorders or infectious disease) (4 sources) Encounter for screening mammogram for malignant neoplasm of breast; Translations: [ENC SCR MAMMO MALIG NEOPLASM BREAST] Onset: 09-10-2022 Episodic Other upper respiratory disease (1 source) Pain in throat Onset: 05-07-2024 Episodic Thyroid disorders (20 sources) Hypothyroidism, unspecified; Translations: [Acquired hypothyroidism] Onset: 11-05-2022 10-12-2024 Chronic Unclassified (1 source) Annual Exam Onset: 02-20-2024 Unclassified (1 source) Low back pain, unspecified; Translations: [Low back pain, unspecified] Onset: 02-05-2024 Unclassified (1 source) Acute cough; Translations: [Acute cough] Onset: 12-04-2023 Past or Other Problems Problem Classification Problem Date Documented Da te Episodic/Chronic Deficiency and other anemia (2 sources) Iron deficiency anemia, unspecified; Translations: [Iron deficiency anemia, unspecified] Onset: 11-05-2022 Episodic Deficiency and other anemia (15 sources) Iron deficiency anemia; Translations: [Iron deficiency anemia, unspecified] Onset: 11-05-2022 11-05-2022 Episodic Headache; including migraine (1 source) Headache Onset: 12-04-2023 Episodic Mood disorders (14 sources) Mood disorders Onset: 12-04-2023 Resolved: 02-20-2024 02-20-2024 Other lower respiratory disease (2 sources) Cough; Translations: [Acute cough] Onset: 12-04-2023 12-04-2023 Episodic Other nutritional; endocrine; and metabolic disorders (1 source) Overweight in adulthood with body mass index of 25 or more but less than 30; Translations: [Body mass index (BMI) 26.0-26.9, adult] 02-20-2024 Episodic Other upper respiratory infections (5 sources) Acute pharyngitis, unspecified; Translations: [Acute upper respiratory infection, unspecified] Onset: 12-04-2023 12-04-2023 Episodic Spondylosis; intervertebral disc disorders; other back problems (6 sources) Lumbago with sciatica, unspecified side; Translations: [Backache] Onset: 02-21-2022 Episodic Unclassified (9 sources) Onset: 02-20-2024 02-20-2024 Results Test Name Value Interpretation Reference Range Facility POCT rapid strep Aon 024 Internal Certified Orthotist/Pedorthist Check Completed and Passed Yes [facility]ifi [facility] Interpretation and review of laboratory results Normal [facility] S. pyogenes Ag IA Ql (Unsp spec) Negative Negative [facility] CBC AND AUTO DIFFon 02-20-20 24 ABSOLUTE BASOPHIL 0.0 X10E9/L Normal 0.0-0.2 [facility] Comment on above: Performed By: #### C BCA, CMP, 90371-0, THYR, 2276-4 #### [facility] ([id number]) [address], [address] [place] [address] ABSOLUTE NEUTROPHIL 2.1 X10E9/L Normal 1.5-6.6 [facility] Comment on above: Performed By: #### C BCA, CMP, 03140-0, THYR, 2276-4 #### [facility] ([id number]) [address], [address] [place] [address] Basophils/100 WBC (Bld) 1.1 % Normal [facility] Comment on above: Performed By: #### C BCA, CMP, 91210-8, THYR, 2276-4 #### [facility] ([id number]) [address], [address] [place] [address] Eosinophils (Bld) [#/Vol] 0.2 10*3/uL Normal 0.0-0.4 [facility] Comment on above: Performed By: #### C BCA, CMP, 58984-5, THYR, 2275-4 #### [facility] ([id number]) [address] [address] [place] [address] Eosinophils/100 WBC (Bld) 4.5 % Normal [facility] Comment on above: Performed By: #### C BCA, CMP, 03913-9, THYR, 2275- #### [facility] ([id number]) [address] [address] Erythrocyte distribution width (RBC) [Ratio] 13.5 % Normal 11.5-15.0 [facility] Comment on above: Performed By: #### C BCA, CMP, 47969-2, THYR, 2275- #### [facility] ([id number]) [address] [address] Hematocrit (Bld) [Volume fraction] 40.0 % Normal 35-47 [facility] Comment on above: Performed By: #### C BCA, CMP, 78971-5, THYR, 2275- #### [facility] ([id number]) [address] [facility] [address] [place] [address] Hemoglobin (Bld) [Mass/Vol] 13.2 g/dL Normal 11.7-15.5 [facility] Comment on above: Performed By: #### C BCA, CMP, 61490-4, THYR, 2275- #### [facility] ([id number]) [address] [address] Lymphocytes (Bld) [#/Vol] 1.3 10*3/uL Normal 1.0-3.5 [facility] Comment on above: Performed By: #### C BCA, CMP, 44516-9, THYR, 2275- #### [facility] ([id number]) [address] [place] [address] Lymphocytes/100 WBC (Bld) 32.7 % Normal [facility] Comment on above: Performed By: #### C BCA, CMP, 62123-5, THYR, 2275- #### [facility] ([id number]) [address] [place] [address] MCH (RBC) [Entitic mass] 29.9 pg Normal 27-34 [facility] Comment on above: Performed By: #### C BCA, CMP, 18705-1, THYR, 2275- #### [facility] ([id number]) [address], [address] [place] [address] MCHC (RBC) [Mass/Vol] 33.0 g/dL Normal 32-36 [facility] Comment on above: Performed By: #### C BCA, CMP, 79312-5, THYR, 2275- #### [facility] ([id number]) [address] [place] [address] MCV (RBC) [Entitic vol] 91 fL Normal 80-100 [facility] Comment on above: Performed By: #### C BCA, CMP, 54752-6, THYR, 2275- #### [facility] ([id number]) [address], [address] [place] [address] Monocytes (Bld) [#/Vol] 0.3 10*3/uL Normal 0-0.9 [facility] Comment on above: Performed By: #### C BCA, CMP, 07337-0, THYR, 2275- #### [facility] ([id number]) [address] [place] [address] Monocytes/100 WBC (Bld) 6.4 % Normal [facility] Comment on above: Performed By: #### C BCA, CMP, 86740-6, THYR, 6-4 #### [facility] ([id number]) [address] [place] [address] Neutrophils/100 WBC (Bld) 55.3 % Normal [facility] Comment on above: Performed By: #### C BCA, CMP, 06836-0, THYR, 6-4 #### [facility] ([id number]) [address] [place] [address] Platelet mean volume (Bld) [Entitic vol] 8.5 fL Normal 7-12 [facility] Comment on above: Performed By: #### C BCA, CMP, 51857-6, THYR, 2275-4 #### [facility] ([id number]) [address] [place] [address] Platelets (Bld) [#/Vol] 285 10*3/uL Normal 150-450 [facility] Comment on above: Performed By: #### C BCA, CMP, 43077-4, THYR, 2275- #### [facility] ([id number]) [address] [place] [address] RBC COUNT 4.42 X10E12/L Normal 3.80-5.20 [facility] Comment on above: Performed By: #### C BCA, CMP, 34949-2, THYR, 2275- #### [facility] ([id number]) [address] [place] [address] WBC (Bld) [#/Vol] 3.9 10*3/uL Low 4.0-11.0 [facility] Comment on above: Performed By: #### C BCA, CMP, 72676-6, THYR, 2276-4 #### [facility] ([id number]) [address] [place] [address] COMPREHENSIVE METABOLIC PANE [facility] 02-20-2024 Albumin [Mass/Vol] 4.3 g/dL Normal 3.2-5.3 [facility] Comment on above: Performed By: #### C BCA, CMP, 55599-0, THYR, 2276-4 #### [facility] ([id number]) [address] [place] [address] ALP [Catalytic activity/Vol] 37 U/L Low 39-130 [facility] Comment on above: Performed By: #### C BCA, CMP, 26965-8, THYR, 2276-4 #### [facility] ([id number]) [address] [place] [address] ALT [Catalytic activity/Vol] 22 U/L Normal 0-31 [facility] Comment on above: Performed By: #### C BCA, CMP, 54560-3, THYR, 2276-4 #### [facility] ([id number]) [address] [place] [address] Anion gap [Moles/Vol] 9 mmol/L Normal 5-15 [facility] Comment on above: Performed By: #### C BCA, CMP, 05474-4, THYR, 2276-4 #### [facility] ([id number]) [address] [place] [address] AST [Catalytic activity/Vol] 23 U/L Normal 0-41 [facility] Comment on above: Performed By: #### C BCA, CMP, 97073-9, THYR, 2276-4 #### [facility] ([id number]) [address] [place] [address] Bilirubin [Mass/Vol] 1.2 mg/dL Normal 0.3-1.2 [facility] Comment on above: Performed By: #### C BCA, CMP, 32195-0, THYR, 2276-4 #### [facility] ([id number]) [address] [place] [address] Calcium [Mass/Vol] 9.2 mg/dL Normal 8.5-10.5 [facility] Comment on above: Performed By: #### C BCA, CMP, 40410-5, THYR, 2276-4 #### [facility] ([id number]) [address] [place] [address] Chloride [Moles/Vol] 101 mmol/L Normal 98-109 [facility] Comment on above: Performed By: #### C BCA, CMP, 45721-6, THYR, 2276-4 #### [facility] ([id number]) [address] [address] [place] [address] CO2 [Moles/Vol] 25 mmol/L Normal 22-32 [facility] Comment on above: Performed By: #### C BCA, CMP, 24347-4, THYR, 2275-4 #### [facility] ([id number]) [address] [address] [place] [address] Creatinine [Mass/Vol] 0.74 mg/dL Normal 0.40-1.00 [facility] Comment on above: Result Comment: METH OD TRACEABLE TO IDMS STANDARD Performed By: #### C BCA, CMP, 02573-9, THYR, 6-4 #### [facility] ([id number]) [address] [address] [place] [address] eGFR (CKD-EPI) NON-RACE DEPENDENT >90 Normal >59 [facility] Comment on above: Result Comment: Reported eGFR is based on the CKD-EPI 2020 equation that does not use a race coefficient. Performed By: #### C BCA, CMP, 57719-7, THYR, 2276-4 #### [facility] ([id number]) [address] [address] [place] [address] Glucose [Mass/Vol] 96 mg/dL Normal 65-99 [facility] Comment on above: Performed By: #### C BCA, CMP, 52580-9, THYR, 2276-4 #### [facility] ([id number]) [address] [place] [address] Potassium [Moles/Vol] 3.8 mmol/L Normal 3.5-5.0 [facility] Comment on above: Performed By: #### C BCA, CMP, 23932-3, THYR, 6-4 #### [facility] ([id number]) [address] [place] [address] Protein [Mass/Vol] 7.3 g/dL Normal 6.0-8.0 [facility] Comment on above: Performed By: #### C BCA, CMP, 44856-9, THYR, 2276-4 #### [facility] ([id number]) [address] [place] [address] Sodium [Moles/Vol] 135 mmol/L Normal 134-146 [facility] Comment on above: Performed By: #### C BCA, CMP, 77855-6, THYR, 6-4 #### [facility] ([id number]) [address] [place] [address] Urea nitrogen [Mass/Vol] 12 mg/dL Normal 5-27 [facility] Comment on above: Performed By: #### C BCA, CMP, 13806-3, THYR, 6-4 #### [facility] ([id number]) [address] [place] [address] FERRITINon 02-20-2024 Ferritin [Mass/Vol] 195 ng/mL Normal 11-307 [facility] Comment on above: Performed By: #### C BCA, CMP, 18387-6, THYR, 2276-4 #### [facility] ([id number]) [address] [place] [address] Lipid 1996 panelon 4 Cholesterol [Mass/Vol] 251 mg/dL High 150-200 [facility] Comment on above: Performed By: #### C BCA, CMP, 40793-0, THYR, 2276-4 #### [facility] ([id number]) [address] [place] [address] Cholesterol in HDL [Mass/Vol] 62 mg/dL Normal >39 [facility] Comment on above: Result Comment: HDL <40 mg/dL - High Risk HDL > or = 40mg/dL- Desirable HDL >60 mg/dL - Negative Risk Performed By: #### C BCA, CMP, 69945-1, THYR, 2276-4 #### [facility] ([id number]) [address] [place] [address] Cholesterol in LDL [Mass/Vol] 171 mg/dL High <130 [facility] Comment on above: Result Comment: LDL <100 mg/dL - Desirable LDL >160 mg/dL - High Risk Performed By: #### C BCA, CMP, 61600-9, THYR, 2276-4 #### [facility] ([id number]) [address] [place] [address] Cholesterol in VLDL [Mass/Vol] 18 mg/dL Normal 0-30 [facility] Comment on above: Performed By: #### C BCA, CMP, 66607-0, THYR, 2276-4 #### [facility] ([id number]) [address], [facility] [address] [place] [address] CHOLESTEROL:HDL 4.0 Normal 1.0-5.0 [facility] Comment on above: Performed By: #### C BCA, CMP, 18270-6, THYR, 2276-4 #### [facility] ([id number]) [address] [place] [address] Triglyceride [Mass/Vol] 88 mg/dL Normal 27-150 [facility] Comment on above: Performed By: #### C BCA, CMP, 95268-9, THYR, 2276-4 #### [facility] ([id number]) [address] [place] [address] THYROID PROFILEon 02-20-2024 Free T4 [Mass/Vol] 1.23 ng/dL Normal 0.61-1.60 [facility] Comment on above: Performed By: #### C BCA, CMP, 03948-1, THYR, 2276-4 #### [facility] ([id number]) [address] [place] [address] TSH 1.46 uIU/mL Normal 0.49-4.67 [facility] Comment on above: Performed By: #### C BCA, CMP, 23388-7, THYR, 2276-4 #### [facility] ([id number]) [address] [place] [address] POCT Influenza A/Influenza B /SARS-COV-2 VeritorOrdered By: Eitan Petit on 12-04-2023 External Poct Influenza A Antigen Negative [facility] External Poct Influenza B Antigen Negative [facility] SARS-CoV-2 (COVID-19) Ag IA.rapid Ql (Resp) Negative [facility] MG MAMM SCREEN 3D BRIEN CADon 09-10-2022 MG MAMM SCREEN 3D BRIEN CAD Patient: ALF CANALES Exam Date: 09/10/2022 : 1960 Gender:F Ordering : DR ABELINO MCNEILL Admission #: [id number] Family : Order #: [id number] CLICK HERE TO VIEW EXAM RADIOLOGY REPORT PROCEDURE: MAMMOGRAM SCREENING 3D BILATERAL CAD COMPARISON: MG MAMM BRIEN SCRN W CAD DIG, 08/22/2015. MG MAMM SCREEN 3D BRINE CAD, 08/10/2021. INDICATIONS: Screening mammography Calculator Name NCI Breast Cancer Risk Assessment Tool 5 Year Breast Cancer Risk 1.90% Lifetime Breast Cancer Risk 9.30% Personal Breast Cancer No Personal Ovarian Cancer No Treatments None Family Cancers None LOCATION: [facility] BREAST COMPOSITION: Heterogeneously dense,which may obscure small masses. FINDINGS: DIAGNOSTIC CATEGORY 2--BENIGN FINDING. NO CHANGE FROM COMPARISON. Scattered benign-appearing nodules are present. Scattered benign-appearing calcifications are present. Scattered benign-appearing lymph nodes are present. RIGHT BREAST: No significant suspicious finding. Stable micro clip marker upper quadrant, mid breast. LEFT BREAST: No significant suspicious finding. RECOMMENDATIONS: ROUTINE MAMMOGRAM AND CLINICAL EVALUATION IN 12 MONTHS. PLEASE NOTE: A NORMAL MAMMOGRAM DOES NOT EXCLUDE THE POSSIBILITY OF BREAST CANCER. A CLINICALLY SUSPICIOUS PALPABLE LUMP SHOULD BE BIOPSIED. Dictated by: Jojo Lees MD on 09/11/2022 at 10:51 Approved by: Jojo Lees MD on 09/11/2022 at 10:52 Normal [facility] XR LSPINE 2_3 VIEWSon 2021 XR LSPINE 2_3 VIEWS EXAMINATION: XR LSPINE 2_3 VIEWS HISTORY: Lumbago with sciatica COMPARISON: No relevant comparison available. FINDINGS: BONES: No significant spondylosis, scoliosis, fracture, or visible bony lesion. DISC SPACES: No significant disc height narrowing, subluxation, or endplate abnormality. PARASPINOUS: Negative. No paraspinous abnormality is seen. OTHER: Negative. IMPRESSION: 1. No acute abnormality or appreciable significant degenerative changes. Consider MRI if symptoms persist. Electronically authenticated by: IRVIN SIU Date: 2022-02-21 14:47 Normal [facility] COVID-19 Antigenon 1 COVID-19 Antigen Healthcare Worker?: N Mary Reference Mary Reference Negative SARS-CoV+SARS-CoV-2 (COVID-19) Ag [Presence] in Respiratory specimen by Rapid immunoassay Negative for SARS Antigen by LUPE COVID19 Blank Space Mary Disclaimer Negative results, from patients with symptom Mary Disclaimer onset beyond five days, should be treated as Mary Disclaimer presumptive and confirmation with a molecular Mary Disclaimer assay, if necessary, for patient management, Mary Disclaimer may be performed. Negative results do not rule Mary Disclaimer out COVID-19 and should not be used as the sole Mary Disclaimer basis for treatment or patient management Mary Disclaimer decisions, including infection control decisions. Mary Disclaimer Negative results should be considered in the Mary Disclaimer context of a patient's recent exposures, history Mary Disclaimer and the presence of clinical signs and symptoms Mary Disclaimer consistent with COVID-19. COVID19 Blank Space Mary Disclaimer The Mary SARS Antigen LUPE does not differentiate Mary Disclaimer between SARS-CoV and SARS-CoV-2. COVID19 Blank Space Mary Disclaimer This test was developed and its performance Mary Disclaimer characteristic determined by [employer] and Mary Disclaimer validated at [facility]. This Mary Disclaimer test has not been FDA cleared or approved. This Mary Disclaimer test has been authorized by FDA under an Emergency Use Mary Disclaimer Authorization (EUA). This test has been validated Mary Disclaimer in accordance with the FDA's Guidance Document (Policy Mary Disclaimer for Diagnostics Testing in Laboratories Certified to Mary Disclaimer Perform High Complexity Testing under CLIA prior to Mary Disclaimer Emergency Use Authorization for Coronavirus Mary Disclaimer iseas during the Public Health Emergency) Mary Disclaimer issued on December 31, 2019. This test is only authorized Mary Disclaimer for the duration of time the declaration that Mary Disclaimer circumstances exist justifying the authorization of Mary Disclaimer the emergency use of in vitro diagnostic tests for Mary Disclaimer detection of SARS-CoV-2 virus and/or diagnosis of Mary Disclaimer COVID-19 infection under section 564(b)(1) of the Mary Disclaimer Act, 21 U.S.C. 360bbb-3(b)(1), unless the Mary Disclaimer authorization is terminated or revoked sooner. PERFORMED BY: [place] [address] PATHOLOGIST [employer] SUPERVISOR BHUPINDER PRICE M.D. Normal [facility] Comment on above: Performed By: #### S JEREMIAH COVID-19 MARY #### [address] Mary Ag Negativeon 08-16-20 21 Mary Ag Negative Negative Normal Negative [facility] Comment on above: Result Comment: This is a duplicate Mary SARS Antigen (LUPE) result to be used for statistical tracking purpose only. PERFORMED BY: [place] [id number] PATHOLOGIST [employer] SUPERVISOR BHUPINDER PRICE M.D. Performed By: #### S JEREMIAH COVID-19 MARY #### [address] CBC (INCLUDES DIFF/PLT)on Basophils (Bld) [#/Vol] 0.062 10*3/uL Normal 0-200 [facility] Comment on above: Performed By: #### 6 399, 46478, 01518, 5470 #### [facility] [address] [facility], [address] [place] [address] Humanities Coordinator: Hossein Keita MD Basophils/100 WBC (Bld) 1.1 % Normal [facility] Comment on above: Performed By: #### 6 399, 17329, 94783, 7600 #### [facility] of [address], [address] [place] [address] Humanities Coordinator: Hossein Keita MD Eosinophils (Bld) [#/Vol] 0.129 10*3/uL Normal 15-500 [facility] Comment on above: Performed By: #### 6 399, 52811, 41511, 7600 #### [facility] of [address], [address] [place] [address] Humanities Coordinator: Hossein Keita MD Eosinophils/100 WBC (Bld) 2.3 % Normal [facility] Comment on above: Performed By: #### 6 399, 73969, 83496, 7600 #### [facility] of [place] [address] Humanities Coordinator: Hossein Keita MD Erythrocyte distribution width (RBC) [Ratio] 12.4 % Normal 11.0-15.0 [facility] Comment on above: Performed By: #### 6 399, 57655, 99999, 7600 #### [facility] of [place] [address] Humanities Coordinator: Hossein Keita MD Hematocrit (Bld) [Volume fraction] 40.2 % Normal 35.0-45.0 [facility] Comment on above: Performed By: #### 6 399, 86298, 49687, 7600 #### [facility] of [place] [address] Humanities Coordinator: Hossein Keita MD Hemoglobin (Bld) [Mass/Vol] 13.9 g/dL Normal 11.7-15.5 [facility] Comment on above: Performed By: #### 6 399, 41697, 65673, 7600 #### [facility] of [place] [address] Humanities Coordinator: Hossein Keita MD Lymphocytes (Bld) [#/Vol] 1.568 10*3/uL Normal 850-3900 [facility] Comment on above: Performed By: #### 6 399, 33852, 96872, 7600 #### [facility] of [place] [address] Humanities Coordinator: Hossein Keita MD Lymphocytes/100 WBC (Bld) 28.0 % Normal [facility] Comment on above: Performed By: #### 6 399, 25697, 39316, 7600 #### [facility] of [place] [address] Humanities Coordinator: Hossein Keita MD MCH (RBC) [Entitic mass] 30.6 pg Normal 27.0-33.0 [facility] Comment on above: Performed By: #### 6 399, 75540, 33533, 7600 #### [facility] of [place] [address] Humanities Coordinator: Hossein Keita MD MCHC (RBC) [Mass/Vol] 34.6 g/dL Normal 32.0-36.0 [facility] Comment on above: Performed By: #### 6 399, 11585, 42776, 7600 #### [facility] of [place] [address] Humanities Coordinator: Hossein Keita MD MCV (RBC) [Entitic vol] 88.5 fL Normal 80.0-100.0 [facility] Comment on above: Performed By: #### 6 399, 14548, 32867, 7600 #### [facility] of [place] [address] Humanities Coordinator: Hossein Keita MD Monocytes (Bld) [#/Vol] 0.459 10*3/uL Normal 200-950 [facility] Comment on above: Performed By: #### 6 399, 53573, 48702, 7600 #### [facility] of [place] [address] Humanities Coordinator: Hossein Keita MD Monocytes/100 WBC (Bld) 8.2 % Normal [facility] Comment on above: Performed By: #### 6 399, 22448, 02050, 7600 #### [facility] of [address], [address] [place] [address] Humanities Coordinator: Hossein Keita MD Neutrophils (Bld) [#/Vol] 3.382 10*3/uL Normal 1131-3227 [facility] Comment on above: Performed By: #### 6 399, 43004, 50673, 7600 #### [facility] of [address], [address] [place] [address] Humanities Coordinator: Hossein Keita MD Neutrophils/100 WBC (Bld) 60.4 % Normal [facility] Comment on above: Performed By: #### 6 399, 44658, 83733, 7600 #### [facility] of [address], [address] [place] [address] Humanities Coordinator: Hossein Keita MD Platelet mean volume (Bld) [Entitic vol] 10.4 fL Normal 7.5-12.5 [facility] Comment on above: Performed By: #### 6 399, 63578, 76586, 7600 #### [facility] of [address], [address] [place] [address] Humanities Coordinator: Hossein Keita MD Platelets (Bld) [#/Vol] 282 10*3/uL Normal 140-400 [facility] Comment on above: Performed By: #### 6 399, 80596, 87239, 7600 #### [facility] of [address], [address] [place] [address] Humanities Coordinator: Hossein Keita MD RBC (Bld) [#/Vol] 4.54 10*6/uL Normal 3.80-5.10 [facility] Comment on above: Performed By: #### 6 399, 26661, 86632, 7600 #### [facility] of [address], [address] [place] [address] Humanities Coordinator: Hossein Keita MD WBC (Bld) [#/Vol] 5.6 10*3/uL Normal 3.8-10.8 [facility] Comment on above: Performed By: #### 6 399, 30396, 88453, 7600 #### [facility] of [address], [address] [place] [address] Humanities Coordinator: Hossein Keita MD [facility] 06-02-2021 Albumin [Mass/Vol] 4.7 g/dL Normal 3.6-5.1 [facility] Comment on above: Performed By: #### 6 399, 18436, 86135, 7600 #### [facility] of [address], [address] [place] [address] Humanities Coordinator: Hossein Keita MD Albumin/Globulin [Mass ratio] 1.7 {ratio} Normal 1.0-2.5 [facility] Comment on above: Performed By: #### 6 399, 00325, 43703, 7600 #### [facility] of [place] [address] Humanities Coordinator: Hossein Keita MD ALP [Catalytic activity/Vol] 56 U/L Normal 37-153 [facility] Comment on above: Performed By: #### 6 399, 79185, 02766, 7600 #### [facility] of [place] [address] Humanities Coordinator: Hossein Keita MD ALT [Catalytic activity/Vol] 20 U/L Normal 6-29 [facility] Comment on above: Performed By: #### 6 399, 47758, 38494, 7600 #### [facility] of [place] [address] Humanities Coordinator: Hossein Keita MD AST [Catalytic activity/Vol] 21 U/L Normal 10-35 [facility] Comment on above: Performed By: #### 6 399, 18551, 89421, 7600 #### [facility] of [place] [address] Humanities Coordinator: Hossein Keita MD Bilirubin [Mass/Vol] 2.0 mg/dL High 0.2-1.2 [facility] Comment on above: Performed By: #### 6 399, 09175, 90421, 7600 #### [facility] of [address], [address] [place] [address] Humanities Coordinator: Hossein Keita MD BUN/CREATININE RATIO NOT APPLICABLE Normal 6-22 [facility] Comment on above: Performed By: #### 6 399, 42928, 59951, 7600 #### [facility] of [address], [address] [place] [address] Humanities Coordinator: Hossein Keita MD Calcium [Mass/Vol] 10.1 mg/dL Normal 8.6-10.4 [facility] Comment on above: Performed By: #### 6 399, 64017, 09853, 7600 #### [facility] of [address], [address] [place] [address] Humanities Coordinator: Hossein Keita MD Chloride [Moles/Vol] 99 mmol/L Normal 98-110 [facility] Comment on above: Performed By: #### 6 399, 31916, 93334, 7600 #### [facility] of [address], [address] [place] [address] Humanities Coordinator: Hossein Keita MD CO2 [Moles/Vol] 31 mmol/L Normal 20-32 [facility] Comment on above: Performed By: #### 6 399, 94348, 40058, 7600 #### [facility] of [address], [address] [place] [address] Humanities Coordinator: Hossein Keita MD Creatinine [Mass/Vol] 0.73 mg/dL Normal 0.50-1.05 [facility] Comment on above: Result Comment: For patients >49 years of age, the reference limit for Creatinine is approximately 13% higher for people identified as -Macanese. Performed By: #### 6 399, 11158, 27448, 7600 #### [facility] of [address], [address] [place] [address] Humanities Coordinator: Hossein Keita MD eGFR NON-AFR. CAMEROONIAN 90 mL/min/1.73m2 Normal > OR = 60 [facility] Comment on above: Performed By: #### 6 399, 12463, 78880, 7600 #### [facility] [place] [address] Humanities Coordinator: Hossein Keita MD GFR/1.73 sq M.predicted among blacks MDRD (S/P/Bld) [Vol rate/Area] 104 mL/min/{1.73_m2} Normal > OR = 60 [facility] Comment on above: Performed By: #### 6 399, 26016, 21445, 7600 #### [facility] [place] [address] Humanities Coordinator: Hossein Keita MD Globulin (S) [Mass/Vol] 2.8 g/dL Normal 1.9-3.7 [facility] Comment on above: Performed By: #### 6 399, 99987, 39347, 7600 #### [facility] [place] [address] Humanities Coordinator: Hossein Keita MD Glucose [Mass/Vol] 101 mg/dL High 65-99 [facility] Comment on above: Result Comment: Fasting reference interval For someone without known diabetes, a glucose value between 100 and 125 mg/dL is consistent with prediabetes and should be confirmed with a follow-up test. Performed By: #### 6 399, 10100, 12888, 7600 #### [facility] [place] [address] Humanities Coordinator: Hossein Keita MD Potassium [Moles/Vol] 4.3 mmol/L Normal 3.5-5.3 [facility] Comment on above: Performed By: #### 6 399, 49845, 84978, 7600 #### [facility] [place] [address] Humanities Coordinator: Hossein Keita MD Protein [Mass/Vol] 7.5 g/dL Normal 6.1-8.1 [facility] Comment on above: Performed By: #### 6 399, 92585, 52791, 7600 #### [facility] [address], [address] [place] [address] Humanities Coordinator: Hossein Keita MD Sodium [Moles/Vol] 137 mmol/L Normal 135-146 [facility] Comment on above: Performed By: #### 6 399, 64459, 47705, 7600 #### [facility] [address], [address] [place] [address] Humanities Coordinator: Hossein Keita MD Urea nitrogen [Mass/Vol] 12 mg/dL Normal 7-25 [facility] Comment on above: Performed By: #### 6 399, 24497, 00829, 7600 #### [facility] [address], [address] [place] [address] Humanities Coordinator: Hossein Keita MD LIPID PANEL, STANDARD 09-0 3-2020 Cholesterol [Mass/Vol] 279 mg/dL High <200 [facility] Comment on above: Order Comment: FASTI NG:YES FASTING: YES Performed By: #### 6 399, 22858, 25789, 7600 #### [facility] [address], [address] [place] [address] Humanities Coordinator: Hossein Keita MD Cholesterol in HDL [Mass/Vol] 68 mg/dL Normal > OR = 50 [facility] Comment on above: Order Comment: FASTI NG:YES FASTING: YES Performed By: #### 6 399, 15358, 19461, 7600 #### [facility] [address], [address] [place] [address] Humanities Coordinator: Hossein Keita MD Cholesterol in LDL [Mass/Vol] 193 mg/dL High [facility] Comment on above: Order Comment: FASTI NG:YES FASTING: YES Result Comment: LDL- C levels > or = 190 mg/dL may indicate familial hypercholesterolemia (FH). Clinical assessment and measurement of blood lipid levels should be considered for all first degree relatives of patients with an FH diagnosis. For questions about testing for familial hypercholesterolemia, please call [employer] [facility] at [phone]. Georgiana T, et al. J National Lipid Association Recommendations for Patient-Centered Management of Dyslipidemia: Part 1 Journal of Clinical Lipidology 2015;9(2), 129-169. Reference range: <100 Desirable range <100 mg/dL for primary prevention; <70 mg/dL for patients with CHD or diabetic patients with > or = 2 CHD risk factors. LDL-C is now calculated using the Lul calculation, which is a validated novel method providing better accuracy than the Friedewald equation in the estimation of LDL-C. Demetris SS et al. MOY. 2013;310(19): 2275-5823 (http://education.check24/faq/EES875) Performed By: #### 6 399, 56375, 90012, 7600 #### [facility] [address], [address] [place] [address] Humanities Coordinator: Hossein Keita MD Cholesterol.total/Ch olesterol in HDL [Mass ratio] 4.1 {ratio} Normal <5.0 [facility] Comment on above: Order Comment: FASTI NG:YES FASTING: YES Performed By: #### 6 399, 26075, 20591, 7600 #### [facility] [address], [address] [place] [address] Humanities Coordinator: Hossein Keita MD NON HDL CHOLESTEROL 211 mg/dL (calc) High <130 [facility] Comment on above: Order Comment: FASTI NG:YES FASTING: YES Result Comment: For patients with diabetes plus 1 major ASCVD risk factor, treating to a non-HDL-C goal of <100 mg/dL (LDL-C of <70 mg/dL) is considered a therapeutic option. Performed By: #### 6 399, 61099, 97696, 7600 #### [facility] [address], [address] [place] [address] Humanities Coordinator: Hossein Keita MD Triglyceride [Mass/Vol] 79 mg/dL Normal <150 [facility] Comment on above: Order Comment: FASTI NG:YES FASTING: YES Performed By: #### 6 399, 12820, 91565, 7600 #### [facility] [address], [address] [place] [address] Humanities Coordinator: Hossein Keita MD TSH+FREE T4on 06-02-2021 Free T4 [Mass/Vol] 1.3 ng/dL Normal 0.8-1.8 [facility] Comment on above: Performed By: #### 6 399, 96579, 88741, 7600 #### [facility] [address] [place] [address], [address] [place] [address] Humanities Coordinator: Hossein Keita MD TSH Qn 1.78 m[IU]/L Normal 0.40-4.50 [facility] Comment on above: Performed By: #### 6 399, 61946, 70366, 5890 #### [facility] [address], [address] [place] [address] Humanities Coordinator: Hossein Keita MD Vital Signs Date Time Vital Sign Value Performing Clinician Facility 05-07-2024 13:07-0400 Body mass index (BMI) [Ratio] 26.57 kg/m2 Antonio Cano APRN-DRAMATIC AGENT Work Phone: [facility] 05-07-2024 13:07-0400 Body temperature 98.2 [degF] Antonio Cano CERTIFICATION ENGINEER-DRAMATIC AGENT Work Phone: [facility] 05-07-2024 13:07-0400 Body weight 70.22 kg Antonio Cano CERTIFICATION ENGINEER-DRAMATIC AGENT Work Phone: [facility] 05-07-2024 13:07-0400 Diastolic blood pressure 60 mm[Hg] Antonio Cano CERTIFICATION ENGINEER-DRAMATIC AGENT Work Phone: [facility] 05-07-2024 13:07-0400 Heart rate 86 /min Antonio Cano CERTIFICATION ENGINEER-DRAMATIC AGENT Work Phone: [facility] 05-07-2024 13:07-0400 SaO2% (BldA) [Mass fraction] 95 % Antonio Cano CERTIFICATION ENGINEER-DRAMATIC AGENT Work Phone: [facility] 05-07-2024 13:07-0400 Systolic blood pressure 124 mm[Hg] Antonio Cano CERTIFICATION ENGINEER-DRAMATIC AGENT Work Phone: [facility] 02-20-2024 08:47-0400 Body height 162.6 cm Cecilia Mondragon CERTIFICATION ENGINEER-SUPERINTENDENT [employer] Work Phone: [facility] 02-20-2024 08:47-0400 Body mass index (BMI) [Ratio] 26.57 kg/m2 Cecilia Mondragon CERTIFICATION ENGINEER-SUPERINTENDENT [employer] Work Phone: [facility] 02-20-2024 08:47-0400 Body temperature 97.7 [degF] Cecilia Mondragon APRN-SUPERINTENDENT [employer] Work Phone: [facility] 02-20-2024 08:47-0400 Body weight 70.22 kg Cecilia Mondragon CERTIFICATION ENGINEER-SUPERINTENDENT [employer] Work Phone: [facility] 02-20-2024 08:47-0400 Diastolic blood pressure 62 mm[Hg] Cecilia Mondragon APRN-SUPERINTENDENT [employer] Work Phone: [facility] 02-20-2024 08:47-0400 Heart rate 56 /min Cecilia Mondragon CERTIFICATION ENGINEER-SUPERINTENDENT [employer] Work Phone: [facility] 02-20-2024 08:47-0400 Respiratory rate 20 /min Cecilia Mondragon APRN-SUPERINTENDENT [employer] Work Phone: [facility] 02-20-2024 08:47-0400 SaO2% (BldA) [Mass fraction] 95 % Cecilia Mondragon CERTIFICATION ENGINEER-SUPERINTENDENT [employer] Work Phone: [facility] 02-20-2024 08:47-0400 Systolic blood pressure 110 mm[Hg] Cecilia Mondragon CERTIFICATION ENGINEER-SUPERINTENDENT [employer] Work Phone: [facility] 02-05-2024 11:21-0400 Body height 162.6 cm Antonio Cano CERTIFICATION ENGINEER-DRAMATIC AGENT Work Phone: [facility] 02-05-2024 11:21-0400 Body mass index (BMI) [Ratio] 26.98 kg/m2 Antonioimani Gutierrezuch CERTIFICATION ENGINEER-DRAMATIC AGENT Work Phone: [facility] 02-05-2024 11:21-0400 Body temperature 98.29 [degF] Antonio Cano CERTIFICATION ENGINEER-DRAMATIC AGENT Work Phone: [facility] 02-05-2024 11:21-0400 Body weight 71.31 kg Antonio Cano CERTIFICATION ENGINEER-DRAMATIC AGENT Work Phone: [facility] 02-05-2024 11:21-0400 Diastolic blood pressure 60 mm[Hg] Antonio Cano CERTIFICATION ENGINEER-DRAMATIC AGENT Work Phone: [facility] 02-05-2024 11:21-0400 Heart rate 67 /min Antonio Cano CERTIFICATION ENGINEER-DRAMATIC AGENT Work Phone: [facility] 02-05-2024 11:21-0400 Respiratory rate 18 /min Antonio Cnao CERTIFICATION ENGINEER-DRAMATIC AGENT Work Phone: [facility] 02-05-2024 11:21-0400 SaO2% (BldA) [Mass fraction] 97 % Antonio Cano CERTIFICATION ENGINEER-DRAMATIC AGENT Work Phone: [facility] 02-05-2024 11:21-0400 Systolic blood pressure 100 mm[Hg] Antonio Cano CERTIFICATION ENGINEER-DRAMATIC AGENT Work Phone: [facility] 12-04-2023 11:51-0500 Body height 162.6 cm Antonio Cano CERTIFICATION ENGINEER-DRAMATIC AGENT Work Phone: [facility] 12-04-2023 11:51-0500 Body mass index (BMI) [Ratio] 26.5 kg/m2 Antonio Cano CERTIFICATION ENGINEER-DRAMATIC AGENT Work Phone: [facility] 12-04-2023 11:51-0500 Body temperature 98.2 [degF] Antonio Cano CERTIFICATION ENGINEER-DRAMATIC AGENT Work Phone: [facility] 12-04-2023 11:51-0500 Body weight 70.03 kg Antonio Cano CERTIFICATION ENGINEER-DRAMATIC AGENT Work Phone: [facility] 12-04-2023 11:51-0500 Diastolic blood pressure 70 mm[Hg] Antonio Cano CERTIFICATION ENGINEER-DRAMATIC AGENT Work Phone: [facility] 12-04-2023 11:51-0500 Heart rate 76 /min Antonio Cano CERTIFICATION ENGINEER-DRAMATIC AGENT Work Phone: [facility] 12-04-2023 11:51-0500 SaO2% (BldA) [Mass fraction] 97 % Antonio Cano CERTIFICATION ENGINEER-DRAMATIC AGENT Work Phone: [facility] 12-04-2023 11:51-0500 Systolic blood pressure 112 mm[Hg] Antonio Cano CERTIFICATION ENGINEER-DRAMATIC AGENT Work Phone: [facility] Encounters Encounter Date Encounter Type Care Provider Facility Start: 12-07-2024 End: 12-09-2024 Refill Sylvia Juwan [facility] Comment on above: Acquired hypothyroid ism Start: 10-12-2024 End: 10-14-2024 Refill Antonio Cano CERTIFICATION ENGINEER-DRAMATIC AGENT Work Phone: [facility] Comment on above: Acquired hypothyroid ism Start: 05-07-2024 End: 05-07-2024 Office outpatient visit 15 minutes Antonio Cano CERTIFICATION ENGINEER-DRAMATIC AGENT Work Phone: [facility] Comment on above: Pharyngitis, unspeci fied etiology (Primary Dx); Viral upper respiratory illness Start: 05-07-2024 End: 05-07-2024 ambulatory [facility] Start: 04-27-2024 End: 05-03-2024 Refill Antonio Cano CERTIFICATION ENGINEER-DRAMATIC AGENT Work Phone: [facility] Comment on above: Acquired hypothyroid ism Start: 02-21-2024 End: 02-27-2024 Telephone encounter Cecilia Mondragon CERTIFICATION ENGINEER-SUPERINTENDENT [employer] Work Phone: [facility] Start: 02-21-2024 End: 02-21-2024 ambulatory [facility] Start: 02-21-2024 Encounter for genera l adult medical examination without abnormal findings [facility] Start: 02-20-2024 End: 02-20-2024 ambulatory [facility] Start: 02-20-2024 Encounter for genera l adult medical examination without abnormal findings [facility] Start: 02-20-2024 End: 02-20-2024 Patient encounter procedure Cecilia Tobias [facility] CERTIFICATION ENGINEER-SUPERINTENDENT [employer] [facility] Work [facility]: Start: 02-20-2024 End: 02-20-2024 Periodic preventive med est patient 40-64yrs Cecilia Mondragon CERTIFICATION ENGINEER-SUPERINTENDENT [employer] Work Phone: [facility] Comment on above: Visit for annual [facility] examination (Primary Dx); BMI 26.0-26.9,adult; Acquired hypothyroidism; Iron deficiency anemia, unspecified iron deficiency anemia type Start: 02-05-2024 End: 02-05-2024 Office outpatient visit 15 minutes Antonio Patricia Cano CERTIFICATION ENGINEER-DRAMATIC AGENT Work Phone: [facility] Comment on above: Acquired hypothyroid ism (Primary Dx); Acute right-sided low back pain without sciatica; Age-related osteoporosis without current pathological fracture Start: 02-05-2024 End: 02-05-2024 ambulatory [facility] Start: 01-22-2024 End: 01-22-2024 Refill Abelino Mcneill DO Work Phone: [facility] Comment on above: Acquired hypothyroid ism Start: 12-04-2023 End: 12-04-2023 ambulatory [facility] Start: 12-04-2023 End: 12-04-2023 Office outpatient visit 15 minutes Antonio L Edouard CERTIFICATION ENGINEER-DRAMATIC AGENT [facility] Comment on above: Acute upper respirat ory infection (Primary Dx); Acute cough Start: 11-11-2023 Refill Abelino su DO [facility] Comment on above: Acquired hypothyroid ism Start: 11-11-2023 Refill Ana [facility] Comment on above: Age-related osteopor osis without current pathological fracture Start: 10-23-2023 End: 10-23-2023 ambulatory Not Available Start: 10-08-2023 End: 10-08-2023 ambulatory Not Available Start: 09-11-2023 End: 09-11-2023 ambulatory Not Available Start: 08-29-2023 End: 08-29-2023 ambulatory Not Available Start: 11-05-2022 Patient encounter status Salbador Mcneill DO Work Phone: [facility] [facility] Start: 09-10-2022 End: 09-11-[address] ABELINO MCNEILL Facility:[facility] Start: 02-21-2022 End: 02-22-[address] ABELINO MCNEILL Facility:[facility] Procedures Date Procedure Procedure Detail Performing Clinician Start: 05-07-2024 Iaadiadoo streptococ cus group a Antonio Cano CERTIFICATION ENGINEER-DRAMATIC AGENT Work Phone: Start: 02-20-2024 Adult depression scr eening assessment Cecilia Mondragon CERTIFICATION ENGINEER-SUPERINTENDENT [employer] Work Phone: Start: 02-05-2024 Adult depression scr eening assessment Antonio Cano CERTIFICATION ENGINEER-DRAMATIC AGENT Work Phone: Start: 12-04-2023 POCT INFLUENZA A/INF LUENZA B/SARS-COV-2 VERITOR Antonio Cano CERTIFICATION ENGINEER-DRAMATIC AGENT Work Phone: Start: 12-04-2023 Adult depression scr eening assessment Antonio Cano CERTIFICATION ENGINEER-DRAMATIC AGENT Work Phone: Start: 04-25-2023 Adult depression scr eening assessment Abelino Mcneill DO Work Phone: Start: 08-18-2021 Colonoscopy Eitan Juárez cheryl HERNANDEZ Plan of Treatment Date Care Activity Detail Author Start: 08-28-2031 DTaP,Tdap and Td Vaccines (2 - Td or Tdap) DTaP,Tdap and Td Vaccines (2 - Td or Tdap) [facility] Start: 08-18-2028 Screening for malign ant neoplasm of colon Colonoscopy [facility] Start: 05-07-2025 Adult BMI Screening Adult BMI Screen ing [facility] Start: 05-07-2025 Tobacco Screening Tobacco Screening [facility] Start: 02-19-2025 Adult BMI Follow Up Plan Adult BMI F ollow Up Plan [facility] Start: 02-19-2025 Adult BMI Screening Adult BMI Screen ing [facility] Start: 02-19-2025 Depression Screening Depression Scre ening [facility] Start: 02-19-2025 Tobacco Screening Tobacco Screening [facility] Start: 02-04-2025 Adult BMI Screening Adult BMI Screen ing [facility] Start: 02-04-2025 Depression Screening Depression Scre ening [facility] Start: 02-04-2025 Tobacco Screening Tobacco Screening [facility] Start: 12-03-2024 Adult BMI Screening Adult BMI Screen ing [facility] Start: 12-03-2024 Depression Screening Depression Scre ening [facility] Start: 12-03-2024 Tobacco Screening Tobacco Screening [facility] Start: 05-31-2024 Influenza vaccination Influenza Vacc ine [facility] Start: 04-25-2024 Adult BMI Screening Adult BMI Screen ing [facility] Start: 04-25-2024 Depression Screening Depression Scre ening [facility] Start: 04-25-2024 Tobacco Screening Tobacco Screening [facility] Start: 02-20-2024 End: 02-20-2024 Patient encounter procedure 02/20/2024 8:40 AM EDT [facility] [address] [place] [id number] Cecilia Mondragon, CERTIFICATION ENGINEER-SUPERINTENDENT [employer] [address] [facility] [address] [facility] Start: 01-10-2024 End: 01-10-2024 Patient encounter procedure 01/10/2024 8:40 AM EDT Office [facility] [address] [place] [address] Antonio Cano, CERTIFICATION ENGINEER-DRAMATIC AGENT [address] [place] [address] [facility] Start: 05-31-2023 COVID-19 Vaccine ( season) COVID-19 Vaccine ( season) [facility] Start: 05-31-2023 Influenza vaccination Influenza Vacc ine [facility] Start: 2011 Administration of varicella zoster vaccine Zoster (Shingles) Vaccine (1 of 2) [facility] Start: 1982 Screening for malign ant neoplasm of cervix Pap Smear [facility] Start: 1979 Adult BMI Follow Up Plan Adult BMI F ollow Up Plan [facility] End: 02-19-2025 CBC W Auto Differential panel - Blood CBC auto differential Lab Routine Iron deficiency anemia, unspecified iron deficiency anemia type 1 Occurrences starting 02/20/2024 until 02/19/2025 [facility] Comment on above: 1 Occurrences starti ng 02/20/2024 until 02/19/2025 End: 02-19-2025 Comprehensive metabolic 2000 panel - Serum or Plasma Comprehensive metabolic panel Lab Routine Visit for annual health examination 1 Occurrences starting 02/20/2024 until 02/19/2025 [facility] Work Phone: Comment on above: 1 Occurrences starti ng 02/20/2024 until 02/19/2025 End: 02-19-2025 Ferritin [Mass/volume] in Serum or Plasma Ferritin Lab Routine Iron deficiency anemia, unspecified iron deficiency anemia type 1 Occurrences starting 02/20/2024 until 02/19/2025 [facility] Comment on above: 1 Occurrences starti ng 02/20/2024 until 02/19/2025 End: 02-19-2025 Lipid panel Lipid panel Lab Routine Visit for annual health examination 1 Occurrences starting 02/20/2024 until 02/19/2025 [facility] Comment on above: 1 Occurrences starti ng 02/20/2024 until 02/19/2025 End: 02-19-2025 Thyroid profile includes TSH FT4 Thyroid profile includes TSH FT4 Lab Routine Acquired hypothyroidism 1 Occurrences starting 02/20/2024 until 02/19/2025 [facility] Comment on above: 1 Occurrences starti ng 02/20/2024 until 02/19/2025 Immunizations Immunization Date Immunization Notes Care Provider [facility] 07-31-2022 influenza virus vaccine, unspecified formulation Abelino Furlong DO Work Phone: [facility] 08-28-2021 tetanus toxoid, redu brandy diphtheria toxoid, and acellular pertussis vaccine, adsorbed Abelino Furlong DO Work Phone: [facility] 07-24-2021 influenza, injectabl e, quadrivalent, contains preservative Abelino Furlong DO Work Phone: [facility] 10-10-2020 COVID-19, mRNA, LNP- S, PF, 30mcg/0.3mL Dose Abelino Furlong DO Work Phone: [facility] 09-30-2020 COVID-19, mRNA, LNP- S, PF, 30mcg/0.3mL Dose Abelino Furlong DO Work Phone: [facility] Payers Date Payer Category Payer Commercial Managed C are - PPO [employer] [id number] 2022 Unknown [employer] Faby AGUIRRE [id number] 2022-Present [phone] [address] [place] [address] [id number] 1960 Unknown [id number] .[id number] 1960 Unknown [id number] [id number] .[id number] 1960 Unknown [id number] .2.1259 1960 Unknown [id number] [id number] .2.1259 1960 Unknown [id number] .2.1259 1960 Unknown [id number] .2.1259 1960 Unknown [id number] [id number] .2.1286 1960 Unknown [id number] [id number] .2.1286 1960 Unknown [id number] [id number] .2.1286 1960 Unknown [id number] [id number] .2.1286 1960 Unknown [id number] [id number] .2.1286 1958 Unknown [id number] Social History Date Type Detail Facility Start: 07-24-2022 Tobacco smoking stat [facility] Never smoked tobacco [facility] Start: 07-24-2022 Tobacco use and exposure Smoke less tobacco non-user [facility] Start: 02-20-2024 End: 05-07-2024 Alcoholic beverage intake Ex-drinker (finding) [facility] Start: 11-05-2022 End: 05-07-2024 History of Social function [facility] Start: 11-05-2022 End: 05-07-2024 Social connection and isolation panel [facility] Do you belong to any clubs or organizations such as sabianism groups, unions, fraternal or athletic groups, or school groups? Yes [facility] Are you now , , , , never or living with a partner? [facility] How often to you hav e a drink containing alcohol? 2-3 time sa week [facility] How many standard dr inks containing alcohol do you have on a typical day? 1 or 2 [facility] How often do you hav e 6 or more drinks on 1 occasion? Never [facility] How hard is it for y ou to pay for the very basics like food, housing, medical care, and heating Not hard at all [facility] Do you feel stress - tense, restless, nervous, or anxious, or unable to sleep at night because your mind is troubled all the time - these days [OSQ] Only a little [facility] Start: 02-20-2024 Alcohol Comment rare [facility] Start: 1960 Sex assigned at Not on file [facility] Start: 05-05-2015 Sex Female (finding) [facility] Clinical Notes 11-11-2023 to 05-07-2024 Antonio Cano APRN-DRAMATIC AGENT - 05/07/2024 1:00 PM EDTTelephone Encounter - [facility] - 02/21/2024 9:18 AM EDTTelephone Encounter - [facility] - 02/21/2024 9:18 AM EDT Note Date & Type Note Facility 05-07-2024 History of Presen t illness Narrative [facility] [address] Patient: Alf Canales Date of : 1960 Encounter Date: 05/07/2024 History of Present Illness: The patient is a 63 y.o. female, an established patient, and is here for Chief Complaint Patient presents with Sore Throat Swelling in neck X2 days . HPI Pt has sore throat and feeling of swelling in her lower throat when she swallows for the last 2 days. She has had some mild headaches and increased fatigue with shoulder tension and neck soreness. 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 She took tylenol yesterday and it helped. No fevers or SOB. Problem List Items Addressed This Visit None Visit Diagnoses Pharyngitis, unspecified etiology - Primary Relevant Orders POCT rapid strep A (Completed) Viral upper respiratory illness Past Medical, Family, and Social History Update: The following portions of the patient's history were reviewed and updated as appropriate: allergies, current medications, past family history, past medical history, past social history, past surgical history and problem list. Past Medical History: Diagnosis Date Arthritis Disease of thyroid gland Osteoporosis Past Surgical History: Procedure Laterality Date INNER EAR SURGERY Right 23 years old Current Outpatient Medications Medication Sig Dispense Refill albuterol (PROVENTIL HFA;VENTOLIN HFA) 90 mcg/actuation inhaler Inhale 2 puffs every 6 (six) hours as needed for wheezing. 18 g 0 alendronate (FOSAMAX) 70 mg tablet TAKE 1 TABLET BY MOUTH EVERY WEEK 12 tablet 3 baclofen (LIORESAL) 10 mg tablet take 1 tablet by mouth twice daily as needed for muscle spasms 28 tablet 1 calcium carbonate-vitamin D3 (OYSTER SHELL CALCIUM-VIT D3) 500 mg(1,250mg) -200 units per tablet Take 1 tablet by mouth in the morning and 1 tablet in the evening. Take with meals. 90 tablet 0 cholecalciferol, vitamin D3, (VITAMIN D3) 5,000 units tablet Take 1 tablet (5,000 Units total) by mouth in the morning. 90 tablet 0 diclofenac sodium (VOLTAREN) 1 % gel Apply 2 g topically in the morning and 2 g at noon and 2 g in the evening and 2 g before bedtime. 20 g 0 fluticasone propionate (FLONASE) 50 mcg/actuation nasal spray Administer 1 spray into each nostril in the morning. 9.9 mL 1 levothyroxine (SYNTHROID, LEVOTHROID) 50 MCG tablet take 1 tablet by mouth in the morning 90 tablet 0 multivitamin capsule Take 1 capsule by mouth in the morning. 90 capsule 0 ibuprofen (MOTRIN) 800 mg tablet Take 1 tablet (800 mg total) by mouth every 6 (six) hours as needed for pain. (Patient not taking: Reported on 05/07/2024) 30 tablet 1 No current facility-administered medications for this visit. (All medications reviewed and updated by provider since last office visit or hospitalization) Allergies: Patient has no known allergies. Tobacco History: Social History Tobacco Use Smoking Status Never Smokeless Tobacco Never (If patient a smoker, smoking cessation counseling offered) Social History: Social History Substance and Sexual Activity Alcohol Use Not Currently Comment: rare Review of Systems: Review of Systems Constitutional: Positive for fatigue. Negative for activity change, appetite change, fever and unexpected weight change. HENT: Positive for postnasal drip, rhinorrhea and sore throat. Negative for congestion, hearing loss, sneezing, trouble swallowing and voice change. Respiratory: Negative. Cardiovascular: Negative. Gastrointestinal: Negative. Psychiatric/Behavioral: Negative. Physical Exam: BP 124/60 (BP Site: Left Arm, BP Postition: Sitting) Pulse 86 Temp 36.8 C (98.2 F) (Bladder) Wt 70.2 kg (154 lb 12.8 oz) SpO2 95% BMI 26.57 kg/m Physical Exam Vitals reviewed. Constitutional: Appearance: Normal appearance. HENT: Head: Normocephalic and atraumatic. Right Ear: Tympanic membrane, ear canal and external ear normal. Left Ear: Tympanic membrane, ear canal and external ear normal. Nose: Nose normal. Mouth/Throat: Mouth: Mucous membranes are moist. Pharynx: Oropharyngeal exudate (vs. 2 stones in right and left posterior pharynx) present. Eyes: Pupils: Pupils are equal, round, and reactive to light. Neck: Thyroid: No thyroid mass, thyromegaly or thyroid tenderness. Cardiovascular: Rate and Rhythm: Normal rate and regular rhythm. Heart sounds: Normal heart sounds. Pulmonary: Effort: Pulmonary effort is normal. Breath sounds: Normal breath sounds. Abdominal: General: Bowel sounds are normal. Palpations: Abdomen is soft. Tenderness: There is no abdominal tenderness. Musculoskeletal: Right lower leg: No edema. Left lower leg: No edema. Lymphadenopathy: Cervical: No cervical adenopathy. Skin: General: Skin is warm. Capillary Refill: Capillary refill takes less than 2 seconds. Neurological: General: No focal deficit present. Mental Status: She is alert and oriented to person, place, and time. Psychiatric: Mood and Affect: Mood normal. Behavior: Behavior normal. Assessment and Plan: Alf was seen today for sore throat. Diagnoses and all orders for this visit: Pharyngitis, unspecified etiology - POCT rapid strep A Viral upper respiratory illness Follow-up: [facility] neg. Thyroid and lymph exam to neck normal. Symptoms management with ibuprofen sparingly with food and tylenol and plenty of rest suggested. If her throat symptoms do not improve by Saturday she should contact office for appt. If she has any trouble swallowing of breathing she should go to ER. F/u for routine wellness when due. MIRANDA FERREIRA APRN-CNP 05/11/24 1340 documented in this encounter [facility] 02-21-2024 Miscellaneous Notes Formattin g of this note might be different from the original. ----- Message from MARINA Lemon sent at 02/20/2024 9:01 AM EDT ----- Regarding: colonoscopy Colonoscopy done at [facility] around spring could we get a copy of that as well REQUEST SENT documented in this encounter [facility] 02-21-2024 Telephone encount er Note ----- Message from MARINA Lemon sent at 02/20/2024 9:01 AM EDT ----- Regarding: colonoscopy Colonoscopy done at [facility] around spring could we get a copy of that as well [facility] 02-21-2024 Telephone encount er Note REQUEST SENT [facility] 02-21-2024 Miscellaneous Notes Formattin g of this note might be different from the original. ----- Message from MARINA Lemon sent at 02/21/2024 7:56 AM EDT ----- You had no sign of anemia, your iron stores were very good. Your blood sugar was good. Your kidney and liver function was good. Your cholesterol was elevated, your ldl or bad cholesterol was 171, the goal is to be less than 100, but your hdl or good cholesterol was 62 which is good, fortunately your ten year risk is still relatively low at 3.5% so lifestyle modification with lots of green leafy vegetables, fiber, limiting refined sugar and processed foods and exercise are the desired approach and not medication at this time. Your thyroid function was normal - cecilia Pt called back and I did read result note. Pt would like a copy of results. She verbally states she understands results. documented in this encounter [facility] 02-21-2024 Telephone encount er Note ----- Message from MARINA Lemon sent at 02/21/2024 7:56 AM EDT ----- You had no sign of anemia, your iron stores were very good. Your blood sugar was good. Your kidney and liver function was good. Your cholesterol was elevated, your ldl or bad cholesterol was 171, the goal is to be less than 100, but your hdl or good cholesterol was 62 which is good, fortunately your ten year risk is still relatively low at 3.5% so lifestyle modification with lots of green leafy vegetables, fiber, limiting refined sugar and processed foods and exercise are the desired approach and not medication at this time. Your thyroid function was normal - cecilia [facility] 02-21-2024 Telephone encount er Note Pt called back and I did read result note. Pt would like a copy of results. She verbally states she understands results. [facility] 02-21-2024 Miscellaneous Notes Formattin g of this note might be different from the original. ----- Message from MARINA Lemon sent at 02/20/2024 9:00 AM EDT ----- Regarding: mammogram She had a mammogram in August, at [facility], could we get a copy please - cecilia On its way documented in this encounter [facility] 02-21-2024 Telephone encount er Note ----- Message from MARINA Lemon sent at 02/20/2024 9:00 AM EDT ----- Regarding: mammogram She had a mammogram in August, at [facility], could we get a copy please - cecilia [facility] 02-21-2024 Telephone encount er Note On its way [facility] 02-20-2024 History of Presen t illness Narrative Subjective Patient ID: Alf Canales is a 63 y.o. female. Here today for her wellness exam Her back is feeling better since her last visit She is ready to get her labs today She did have a colonoscopy at [facility] in 2021 and it was normal Her mammogram was in August at [facility] and she is scheduled for her pap next week with Dr Nelson, she has had no issues with menopause She exercises regularly and tries to eat healthy and avoid salt and processed foods and saturated fats Bowels and bladder have been good The following portions of the patient's history were reviewed and updated as appropriate: allergies, current medications, past family history, past medical history, past social history, past surgical history, problem list, and medication reconciliation was completed including current medication and post discharge medication. Review of Systems Constitutional: Negative. HENT: Negative. Eyes: Negative. Respiratory: Negative. Cardiovascular: Negative. Gastrointestinal: Negative. Endocrine: Negative. Genitourinary: Negative. Musculoskeletal: Negative. Allergic/Immunologic: Negative. Neurological: Negative. Hematological: Negative. Psychiatric/Behavioral: Negative. Objective Physical Exam Vitals and nursing note reviewed. Constitutional: Appearance: Normal appearance. HENT: Head: Normocephalic. Eyes: Conjunctiva/sclera: Conjunctivae normal. Neck: Vascular: No carotid bruit. Cardiovascular: Rate and Rhythm: Normal rate and regular rhythm. Pulses: Normal pulses. Heart sounds: Normal heart sounds. No murmur heard. Pulmonary: Effort: Pulmonary effort is normal. Breath sounds: Normal breath sounds. Musculoskeletal: Cervical back: Neck supple. Right lower leg: No edema. Left lower leg: No edema. Lymphadenopathy: Cervical: No cervical adenopathy. Skin: General: Skin is warm and dry. Capillary Refill: Capillary refill takes less than 2 seconds. Neurological: Mental Status: She is alert and oriented to person, place, and time. Gait: Gait normal. Psychiatric: Mood and Affect: Mood normal. Behavior: Behavior normal. Thought Content: Thought content normal. Judgment: Judgment normal. Assessment/Plan Alf was seen today for annual exam. Diagnoses and all orders for this visit: Visit for annual health examination - Comprehensive metabolic panel; Future - Lipid panel; Future BMI 26.0-26.9,adult Acquired hypothyroidism - Thyroid profile includes TSH FT4; Future Iron deficiency anemia, unspecified iron deficiency anemia type - CBC auto differential; Future - Ferritin; Future Here today for her annual exam Her screening cmp and lipids were drawn Her yearly check on her thyroid was drawn She does have a history of anemia which she used to take iron for and this is to be checked today as well as it has been several years since this has been checked She has an apt next week for her pap with Dr Nelson's [employer] She is up to date on her mammogram 09/21 and a copy of this is requested from [facility] She had her colonscopy at [facility] in and a copy of this is requested as well She is taking fosamax for her osteoporosis and she will be due for a recheck of this next year She is encouraged to continue her exercise and healthy eating habits to achieve her ideal bmi Her blood pressure is stable and at goal without medication Patient noted to have elevated BMI and the following intervention(s) were applied: encouragement to exercise. MARINA Lemon 02/20/24 0918 documented [facility] encounter [facility] History of Presen t illness Narrative [address] [place] [address] Patient: Alf Canales Date of : 1960 Encounter Date: 02/05/2024 History of Present Illness: The patient is a 63 y.o. female, an established patient, and is here for Chief Complaint Patient presents with Back Pain Hurts to sit and stand . HPI Patient's pain started on Saturday when she picked up a heavy concrete flower pot and she felt a pull in her lower right back and hip area. She states her pain is a 9/10 without ibuprofen and does decrease to about a 6/10 after she takes 800 mg of ibuprofen or naproxen. She has a lot of tightness in her lower right back and hip area but the pain does not shoot anywhere, nor does she experience any numbness or tingling and weakness in her right leg. 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 Her last Motrin dose was about 930 this morning before appointment. She denies any loss of bowel or bladder control. Problem List Items Addressed This Visit Endocrine Acquired hypothyroidism - Primary Relevant Medications levothyroxine (SYNTHROID, LEVOTHROID) 50 MCG tablet Musculoskeletal and Integument Osteoporosis Relevant Medications alendronate (FOSAMAX) 70 mg tablet Other Visit Diagnoses Acute right-sided low back pain without sciatica Past Medical, Family, and Social History Update: The following portions of the patient's history were reviewed and updated as appropriate: allergies, current medications, past family history, past medical history, past social history, past surgical history and problem list. Past Medical History: Diagnosis Date Arthritis Disease of thyroid gland Osteoporosis Past Surgical History: Procedure Laterality Date INNER EAR SURGERY Right 23 years old Current Outpatient Medications Medication Sig Dispense Refill albuterol (PROVENTIL HFA;VENTOLIN HFA) 90 mcg/actuation inhaler Inhale 2 puffs every 6 (six) hours as needed for wheezing. 18 g 0 alendronate (FOSAMAX) 70 mg tablet TAKE 1 TABLET BY MOUTH EVERY WEEK 12 tablet 3 baclofen (LIORESAL) 10 mg tablet Take 1 tablet (10 mg total) by mouth 2 (two) times a day as needed for muscle spasms. 28 tablet 1 benzonatate (TESSALON PERLES) 200 mg capsule TAKE 1 CAPSULE BY MOUTH THREE TIMES DAILY NEEDED FOR COUGH 30 capsule 0 calcium carbonate-vitamin D3 (OYSTER SHELL CALCIUM-VIT D3) 500 mg(1,250mg) -200 units per tablet Take 1 tablet by mouth in the morning and 1 tablet in the evening. Take with meals. 90 tablet 0 cholecalciferol, vitamin D3, (VITAMIN D3) 5,000 units tablet Take 1 tablet (5,000 Units total) by mouth in the morning. 90 tablet 0 diclofenac sodium (VOLTAREN) 1 % gel Apply 2 g topically in the morning and 2 g at noon and 2 g in the evening and 2 g before bedtime. 20 g 0 fluticasone propionate (FLONASE) 50 mcg/actuation nasal spray Administer 1 spray into each nostril in the morning. 9.9 mL 1 ibuprofen (MOTRIN) 800 mg tablet Take 1 tablet (800 mg total) by mouth every 6 (six) hours as needed for pain. 30 tablet 1 levothyroxine (SYNTHROID, LEVOTHROID) 50 MCG tablet Take 1 tablet (50 mcg total) by mouth in the morning. 90 tablet 0 multivitamin capsule Take 1 capsule by mouth in the morning. 90 capsule 0 No current facility-administered medications for this visit. (All medications reviewed and updated by provider since last office visit or hospitalization) Allergies: Patient has no known allergies. Tobacco History: Social History Tobacco Use Smoking Status Never Smokeless Tobacco Never (If patient a smoker, smoking cessation counseling offered) Social History: Social History Substance and Sexual Activity Alcohol Use None Review of Systems: Review of Systems Constitutional: Negative for activity change, appetite change and unexpected weight change. Respiratory: Negative. Cardiovascular: Negative. Gastrointestinal: Negative. Musculoskeletal: Positive for back pain, gait problem, myalgias, neck pain and neck stiffness. Neurological: Negative for dizziness, weakness and numbness. Physical Exam: BP 100/60 (BP Site: Left Arm, BP Postition: Sitting) Pulse 67 Temp 36.8 C (98.3 F) (Oral) Resp 18 Ht 162.6 cm (5' 4 ) Wt 71.3 kg (157 lb 3.2 oz) SpO2 97% BMI 26.98 kg/m Physical Exam Vitals reviewed. Constitutional: Appearance: Normal appearance. HENT: Head: Normocephalic and atraumatic. Cardiovascular: Rate and Rhythm: Normal rate and regular rhythm. Heart sounds: Normal heart sounds. Pulmonary: Effort: Pulmonary effort is normal. Breath sounds: Normal breath sounds. Abdominal: General: Bowel sounds are normal. Palpations: Abdomen is soft. Tenderness: There is no abdominal tenderness. Musculoskeletal: Lumbar back: Tenderness (Right L5-S1 transverse spine) present. No swelling or deformity. Decreased range of motion. Negative right straight leg raise test and negative left straight leg raise test. Right lower leg: No edema. Left lower leg: No edema. Skin: General: Skin is warm. Capillary Refill: Capillary refill takes less than 2 seconds. Neurological: General: No focal deficit present. Mental Status: She is alert and oriented to person, place, and time. Sensory: Sensation is intact. Motor: Motor function is intact. No weakness. Coordination: Coordination is intact. Gait: Gait normal. Psychiatric: Mood and Affect: Mood normal. Behavior: Behavior normal. Assessment and Plan: Alf was seen today for back pain. Diagnoses and all orders for this visit: Acquired hypothyroidism - levothyroxine (SYNTHROID, LEVOTHROID) 50 MCG tablet; Take 1 tablet (50 mcg total) by mouth in the morning. Acute right-sided low back pain without sciatica Age-related osteoporosis without current pathological fracture - alendronate (FOSAMAX) 70 mg tablet; TAKE 1 TABLET BY MOUTH EVERY WEEK Other orders - baclofen (LIORESAL) 10 mg tablet; Take 1 tablet (10 mg total) by mouth 2 (two) times a day as needed for muscle spasms. Follow-up: Patient has no radiculopathy signs or symptoms and likely strained muscles including right oblique and gluteus medius. She should apply warm compresses, home exercise plan given, she may continue ibuprofen 800 mg with food every 8 hours and rotate with extra-strength Tylenol [id number], use lidocaine patches [id number] and muscle relaxant as above. If pain does not improve in the next 1-2 weeks she is to return to the office. Off work note was given as her job is very strenuous to her lower back. Patient has appointment to return to the office for a wellness visit this month. Patient did not want OMT today or x-ray. MIRANDA FREREIRA APRN-CNP 02/05/24 1202 documented in this encounter [facility] 01-22-2024 Miscellaneous Notes Formattin g of this note might be different from the original. She canceled her last wellness appointment. Please reschedule documented in this encounter [facility] 01-22-2024 Telephone encount er Note She canceled her last wellness appointment. Please reschedule [facility] 12-04-2023 History of Presen t illness Narrative [address] [place] [address] Patient: Alf Canales Date of : 1960 Encounter Date: 12/04/2023 History of Present Illness: The patient is a 63 y.o. female, an established patient, and is here for Chief Complaint Patient presents with Headache Cough . HPI Since Saturday patient has had a sore throat and productive cough with sinus congestion, headache and some shortness of breath when she feels she is unable to clear her mucus. She took a COVID test at home which was negative and tested negative for RSV at work, she works at [employer]. She has had no fevers or body aches but she does feel excessively fatigued. Many of her coworkers and patient's at the [employer] are sick with various viruses that she has been exposed to. Problem List Items Addressed This Visit None Visit Diagnoses Acute upper respiratory infection - Primary Acute cough Relevant Orders POCT Influenza A/Influenza B/SARS-COV-2 Veritor (Completed) Past Medical, Family, and Social History Update: The following portions of the patient's history were reviewed and updated as appropriate: allergies, current medications, past family history, past medical history, past social history, past surgical history and problem list. Past Medical History: Diagnosis Date Arthritis Disease of thyroid gland Osteoporosis Past Surgical History: Procedure Laterality Date INNER EAR SURGERY Right 23 years old Current Outpatient Medications Medication Sig Dispense Refill albuterol (PROVENTIL HFA;VENTOLIN HFA) 90 mcg/actuation inhaler Inhale 2 puffs every 6 (six) hours as needed for wheezing. 18 g 0 alendronate (FOSAMAX) 70 mg tablet TAKE 1 TABLET BY MOUTH EVERY WEEK 12 tablet 3 benzonatate (TESSALON PERLES) 200 mg capsule TAKE 1 CAPSULE BY MOUTH THREE TIMES DAILY NEEDED FOR COUGH 30 capsule 0 calcium carbonate-vitamin D3 (OYSTER SHELL CALCIUM-VIT D3) 500 mg(1,250mg) -200 units per tablet Take 1 tablet by mouth in the morning and 1 tablet in the evening. Take with meals. 90 tablet 0 cholecalciferol, vitamin D3, (VITAMIN D3) 5,000 units tablet Take 1 tablet (5,000 Units total) by mouth in the morning. 90 tablet 0 diclofenac sodium (VOLTAREN) 1 % gel Apply 2 g topically in the morning and 2 g at noon and 2 g in the evening and 2 g before bedtime. 20 g 0 ibuprofen (MOTRIN) 800 mg tablet Take 1 tablet (800 mg total) by mouth every 6 (six) hours as needed for pain. 30 tablet 1 levothyroxine (SYNTHROID, LEVOTHROID) 50 MCG tablet TAKE 1 TABLET BY MOUTH EVERY MORNING 90 tablet 0 multivitamin capsule Take 1 capsule by mouth in the morning. 90 capsule 0 fluticasone propionate (FLONASE) 50 mcg/actuation nasal spray Administer 1 spray into each nostril in the morning. 9.9 mL 1 No current facility-administered medications for this visit. (All medications reviewed and updated by provider since last office visit or hospitalization) Allergies: Patient has no known allergies. Tobacco History: Social History Tobacco Use Smoking Status Never Smokeless Tobacco Never (If patient a smoker, smoking cessation counseling offered) Social History: Social History Substance and Sexual Activity Alcohol Use None Review of Systems: Review of Systems Constitutional: Positive for fatigue. Negative for activity change, appetite change, chills, fever and unexpected weight change. HENT: Positive for congestion, postnasal drip, rhinorrhea, sinus pressure, sore throat and voice change. Negative for ear discharge and ear pain. Respiratory: Positive for cough and shortness of breath. Negative for wheezing. Cardiovascular: Negative. Gastrointestinal: Negative. Musculoskeletal: Negative for myalgias. Neurological: Positive for headaches. Physical Exam: BP 112/70 (BP Site: Left Arm, BP Postition: Sitting) Pulse 76 Temp 36.8 C (98.2 F) (Tympanic) Ht 162.6 cm (5' 4 ) Wt 70 kg (154 lb 6.4 oz) SpO2 97% BMI 26.50 kg/m Physical Exam Vitals reviewed. Constitutional: General: She is not in acute distress. Appearance: Normal appearance. She is not toxic-appearing. HENT: Head: Normocephalic and atraumatic. Right Ear: Tympanic membrane, ear canal and external ear normal. Left Ear: Tympanic membrane, ear canal and external ear normal. Ears: Comments: Narrow right EAC Nose: Congestion present. Mouth/Throat: Mouth: Mucous membranes are moist. Eyes: Pupils: Pupils are equal, round, and reactive to light. Cardiovascular: Rate and Rhythm: Normal rate and regular rhythm. Heart sounds: Normal heart sounds. Pulmonary: Effort: Pulmonary effort is normal. Breath sounds: Normal breath sounds. Abdominal: Palpations: Abdomen is soft. Tenderness: There is no abdominal tenderness. Lymphadenopathy: Cervical: No cervical adenopathy. Skin: General: Skin is warm. Capillary Refill: Capillary refill takes less than 2 seconds. Neurological: General: No focal deficit present. Mental Status: She is alert and oriented to person, place, and time. Psychiatric: Mood and Affect: Mood normal. Behavior: Behavior normal. Assessment and Plan: Alf was seen today for headache and cough. Diagnoses and all orders for this visit: Acute upper respiratory infection Acute cough - POCT Influenza A/Influenza B/SARS-COV-2 Veritor Other orders - fluticasone propionate (FLONASE) 50 mcg/actuation nasal spray; Administer 1 spray into each nostril in the morning. Follow-up: Patient likely has viral upper respiratory infection. Treat symptoms with Robitussin w/o decongestant and tylenol and flonase and humidifier in bedroom. She should get plenty of rest and off work note was given for rest of week. If she does not improved by Saturday she should notify provider or return to office. RTO for routine PAP/well sometime this year. MIRANDA FERREIRA APRN-CNP 12/04/23 1252 documented in this encounter [facility] 11-11-2023 Miscellaneous Notes Formattin g of this note might be different from the original. Rx sent in. She is due for her wellness any time Spoke to patient she will call back tomorrow and schedule documented in this encounter [facility] 11-11-2023 Telephone encount er Note Rx sent in. She is due for her wellness any time [facility] 11-11-2023 Telephone encount er Note Spoke to patient she will call back tomorrow and schedule [facility] Evaluation note Diagnosis Acquired hypothyroidism Unspecified hypothyroidism documented in this encounter [facility]* Diagnosis Acquired hypothyroidism- Primary Unspecified hypothyroidism Acute right-sided low back pain without sciatica Age-related osteoporosis without current pathological fracture documented in this encounter [facility]* Diagnosis Visit for annual health examination- Primary BMI 26.0-26.9,adult Acquired hypothyroidism Unspecified hypothyroidism Iron deficiency anemia, unspecified iron deficiency anemia type documented in this encounter [facility]* Diagnosis Age-related osteoporosis without current pathological fracture documented in this encounter [facility]* Diagnosis Acute upper respiratory infection- Primary Acute upper respiratory infections of unspecified site Acute cough documented in this encounter [facility]* Diagnosis Pharyngitis, unspecified etiology- Primary Viral upper respiratory illness documented in this encounter [facility] SystemInstructionsNot on filedocumented in this encounter [facility] SystemInstructionsNot on filedocumented in this encounter [facility] SystemInstructions* Attachments The following attachments cannot be sent through Care Everywhere. * Low back pain in adults ([place]) * Back Exercises ([place]) [facility] SystemInstructionsNot on file documented in [facility]Prem[facility] SystemInstructionsNot on file documented in [facility] encounterPrem[facility] SystemInstructionsNot on file documented in [facility]Prem[facility] SystemInstructions* Attachments The following attachments cannot be sent through Care Everywhere. * Cough, runny nose, and the common cold ([place]) documented in [facility]Prem[facility] SystemInstructionsNot on file documented in [facility]Prem[facility] SystemInstructions* Attachments The following attachments cannot be sent through Care Everywhere. * Viral Pharyngitis ([place]) [facility] Summary Purpose Family History No Family History Records FoundNo Family History Records FoundNo Family History Records FoundNo Family History Records FoundNo Family History Records FoundNo Family History Records Found Advance Directives No Advanced Directives Records FoundNo Advanced Directives Records FoundNo Advanced Directives Records FoundNo Advanced Directives Records FoundNo Advanced Directives Records FoundNo Advanced Directives Records Found Additional Source Comments INFORMATION SOURCE (unrecogn ized section and content) DATE CREATED AUTHOR 07/30/2021 [facility] DATE CREATED AUTHOR AUTHOR'S ORGANIZ ATION 10/25/2021 [facility] DATE CREATED AUTHOR AUTHOR'S ORGANIZ ATION 09/21/2022 [facility] DATE CREATED AUTHOR AUTHOR'S ORGANIZ ATION 10/25/2023 [facility] EPIC DATE CREATED AUTHOR AUTHOR'S ORGANIZ ATION 02/23/2024 [facility] DATE CREATED AUTHOR AUTHOR'S ORGANIZ ATION 05/10/2024 [facility] Reason for Visit (unrecogniz ed section and content) Reason Comments Med Refill Reason Comments Back Pain Hurts to sit and sta nd Reason Comments Annual Exam Reason Onset Date Comments Med Refill 11/11/2023 Reason Comments Headache Cough Reason Comments Sore Throat Swelling in neck X2 days Reason Onset Date Comments Med Refill 12/07/2024 Care Teams (unrecognized sec tion and content) Tailings Worker Relationship Specialty Start Date End Date Antonio Cano CERTIFICATION ENGINEER-DRAMATIC AGENT [address] [place] [address] PCP - General Internal Medicine 02/05/24 Tailings Worker Relationship Specialty Start Date End Date Abelino Mcneill DO [address] [place] [address] PCP - General Family Medicine 07/23/22 Tailings Worker Relationship Specialty Start Date End Date Antonio Cano CERTIFICATION ENGINEER-DRAMATIC AGENT [address] [place] [address] PCP - General Internal Medicine 02/05/24 Tailings Worker Relationship Specialty Start Date End Date Antonio Cano CERTIFICATION ENGINEER-DRAMATIC AGENT [address] [place] [address] PCP - General Internal Medicine 02/05/24 Tailings Worker Relationship Specialty Start Date End Date Antonio Can[facility] [address] [place] [address] PCP - General Internal Medicine 02/05/24 Tailings Worker Relationship Specialty Start Date End Date Antonio Cano [facility] [address] [place] [address] PCP - General Internal Medicine 02/05/24 Tailings Worker Relationship Specialty Start Date End Date Abelino Mcneill DO [address] [place] [address] PCP - General Family Medicine 07/23/22 Tailings Worker Relationship Specialty Start Date End Date Antonio [facility]oARPITVAL[facility] [address] [place] [address] PCP - General Internal Medicine 02/05/24 Tailings Worker Relationship Specialty Start Date End Date Antonio Cano CERTIFICATION [facility] [address] [place] [address] PCP - General Internal Medicine 02/05/24 FOR RECORDS PERTAINING TO PATIENTS WHO ARE OR HAVE BEEN ENROLLED IN A CHEMICAL DEPENDENCY/SUBSTANCEABUSE PROGRAM, SOME INFORMATION MAY BE OMITTED. This clinical summary was aggregated from multiple sources. Caution should be exercised in using it in the provision of clinical care. This summary normalizes information from multiple sources, and as a consequence, information in this document may materially change the coding, format and clinical context of patient data. In addition, data may be omitted in some cases. CLINICAL DECISIONS SHOULD BE BASED ON THE PRIMARY CLINICAL RECORDS. [facility] [employer] [facility] provides no warranty or guarantee of the accuracy or completeness of information in this document.
== END 2025-01-11 08:19 | disposition home or self-care (01) ==
LOC: MAMMO 08:18
PROVIDERS: PCP Family Medicine; Visit Provider Family Medicine
DX: Z12.31 Encounter for screening mammogram for malignant neoplasm of breast (principal)
CPT/HCPCS: 77063; 77067

== ENCOUNTER 2025-02-02 13:03 | Outpatient (REF) | payer OTHER, SELFPAY ==
[2025-02-04 11:08] LABS: Age Gdln ACOG Testing Note (.); HPV Aptima Negative (Negative); IGP, Aptima HPV, rfx 16/18,45 Note (.)
== END 2025-02-02 13:04 | disposition home or self-care (01) ==
LOC: LAB 13:03
PROVIDERS: PCP Family Medicine; Visit Provider Physician Assistant
DX: Z01.419 Encounter for gynecological examination (general) (routine) without abnormal findings (principal)
CPT/HCPCS: 87624; 88175